=== PATIENT | female | born 1990 | race Caucasian/White ===

== ENCOUNTER 2022-06-07 10:17 | Emergency (ER) | payer OTHER, SELFPAY ==
[2022-06-07] VITALS (12 sets, daily range): BP systolic 157–190; BP diastolic 88–125; PULSE 68–98; RESP 9–20; TEMP 36.7–36.8; O2SAT 97–98
--- NOTE | 2022-06-07 10:30 | DI.CT_ITS ---
Exam(s) CT HEAD WO EXAM: CT HEAD WO CLINICAL HISTORY: headache. TECHNIQUE: Imaging Protocol: Axial computed tomography images with coronal and sagittal reformatted images were created and reviewed COMPARISON: No exams were available for comparison FINDINGS: There are no skull fractures. There is no fluid in the visualized paranasal sinuses. There is no evidence of intracranial hemorrhage, mass effect, or shift of midline structures. There are no extra-axial fluid collections. The ventricles are not enlarged or shifted and there is no blo od within the ventricular system nor within the basal cisterns. IMPRESSION: No acute intracranial findings on this noninfused CT scan of the brain. RADIATION DOSE DELIVERED: 681.39mGy.cm Total DLP DATA REPOSITORY: All CT scans at this facility are submitted to the National Radiology Data Registry (NRDR) Dose Index Registry (DIR) with the [employer] ([employer]). RADIATION OPTIMIZATION: All CT scans at this facility use at least one of these dose optimization te chniques: automated exposure control; mA and/or kV adjustment per patient size (includes targeted exa ms where dose is matched to clinical indication); or iterative reconstruction.
--- NOTE | 2022-06-07 10:30 | RT.EKG_ITS ---
APPROVED REPORT Exam: Resting ECG Reason for Exam: dizziness Patient Location: E HR:73 bpm ECG Measurements Heart Rate 73 AXIS TN 148 P 32 QRSd 97 QRS 25 QT 423 T 2 QTc 468 Conclusion Sinus rhythm...normal P axis, V-rate 60- 99 Probable left ventricular hypertrophy...(RaVL+SV3)xQRSd >300
--- OUTSIDE RECORDS SUMMARY | 2022-06-07 10:33 | XMS_ITS | Continuity of Care Document ---
:1990 Author Organization [facility] Center Address [address] [place] [address] Care Team Providers Name Role Phone Laura Washington Primary Care Physician Encounter [id number] Date(s): 06/06/22 - 06/06/22 [facility] [address] [place] [address] Encounter Diagnosis Hypertension (Discharge Diagnosis) - 06/06/22 Discharge Disposition: Home or Self Care Attending Physician: Miguel A Pickett MD Admitting Physician: Miguel A Pickett MD Allergies, Adverse Reactions, Alerts Substance Reaction Severity Status amoxicillin Skin rash Unknown Active Assessment and Plan Future Appointments Functional Status 06/06/22 Family Member Travel History No recent travel Recent Travel History No recent travel Other exposure to Infectious Disease None Immunizations Given and Recorded Vaccine Date Status Refusal Reason influenza virus vaccine, inactivated1 05/30/22 Recorded measles/mumps/rubella virus vaccine2 02/13/22 Recorded measles/mumps/rubella virus vaccine3 01/10/22 Recorded SARS-CoV-2 (COVID-19) Ad26 vaccine 06/13/21 Recorded tetanus/diphth/pertuss (Tdap) adult/adol 02/15/13 Recorde d Not Given Vaccine Date Status Refusal Reason influenza, unspecified formulation4, 5 04/11/22 Not Given Patient Refuses 1Result Comment: EMPLOYEE [id number] Comment: EMPLOYEE HEALTH VACCINATION3 Result Comment: EMPLOYEE HEALTH [id number] Comment: influenza, injectable, quadrivalent, preservative free Patient Declined Last Modified by Rebekah Hope [place] [employer] 06-14-2020, 14:105Result Comment: influenza, injectable, quadrivalent, preservative free Patient Declined Last Modified by Rebekah Judsonia, [place] [employer] 06-14-2020, 14:10 RECEIVED VACCINE Medications amLODIPine 2.5 mg oral tablet 2.5 mg = 1 tab, Oral, Daily, # 30 tab, 0 Refill(s), Pharmacy: [id number], 162, cm, 06/06/22 13:11:00 EST, Height/Length Dosing, 74.84, kg, 06/06/22 13:11:00 EST, Weight Dosing Start Date: 06/06/22 Status: Orderedbetamethasone dipropionate, augmented 0.05% topical ointment 1 bee to hands, Topical, As Directed, TWICE DAILY FOR 2 WEEKS THEN TAKE A WEEK OFF AND REPEAT NEEDED Start Date: 04/11/22 Status: OrderedChantix Starter Pack 0.5 mg-1 mg oral tablet See Instructions, take kit as instructed, # 1 kits, 0 Refill(s), Pharmacy: [id number] Start Date: 05/08/22 Status: OrderedDupixent Pre-filled Pen 300 mg/2 mL subcutaneous solution 300 mg = 2 mL, Subcutaneous, every 2 wk Start Date: 04/11/22 Status: OrderedFLUoxetine 20 mg oral capsule 20 mg = 1 cap, Oral, Daily, 90 EA, TAKE 1 CAPSULE BY MOUTH ONCE DAILY IN THE MORNING, # 90 cap, 0 Refill(s), Pharmacy: [id number] Start Date: 05/16/22 Status: Orderedhalobetasol 0.01% topical lotion 0 Refill(s) Start Date: 01/08/22 Status: Orderednicotine 21 mg/24 hr transdermal film, extended release 1 patches, TD, Daily, 0 Refill(s) Start Date: 04/11/22 Status: OrderedProtopic 0.1% topical ointment 30 g, APPLY TOPICALLY TO THE AFFECTED AREAS ON THE HANDS TWICE DAILY DURING THE WEEKENDS NEEDED, 0 Refill(s) Start Date: 01/08/22 Status: Ordered Problem List Condition Confirmation Course Effective Dates Status Health I nformant Status Anxiety Confirmed Active Contraception care Confirmed Active management Cyst of ovary Confirmed Active Neck pain Confirmed Active Nicotine dependence Confirmed Active Overweight Confirmed Active Periapical abscess Confirmed Active Pyelonephritis Confirmed Active Refractory migraine Confirmed Active Procedures Procedure Date Related Diagnosis Body Site Status Hysteroscopy with biopsy1 12/18/20 Co mpleted PAP test date2 05/09/14 Completed 1with Mirena IUD [id number]/15/2014- pap nl, Results Laboratory List Name Date Test Urine Qual 06/06/22 Most recent to oldest [Reference Range]: 1 U hCG Ql Negative (06/06/22 1:43 PM) Vital Signs Most recent to oldest 1 2 3 [Reference Range]: Temperature Temporal Artery 36.5 Deg C [36-38 Deg C] (06/06/22 1:05 PM) Peripheral Pulse Rate 94 bpm [60-100 bpm] (06/06/22 1:05 PM) Heart Rate Monitored [60-100 98 bpm 98 bpm bpm] (06/06/22 1:45 PM) (06/06/22 1:19 PM) Respiratory Rate [12-24 16 br/min 10 br/min 18 br/mi n br/min] (06/06/22 1:45 PM) *LOW* (06/06/22 1:0 5 PM) (06/06/22 1:19 PM) Blood Pressure [90-140/60-90 160/95 mmHg 180/111 mmHg 200 /100 mmHg mmHg] *HI* *HI* *HI* (06/06/22 1:45 PM) (06/06/22 1:19 PM) (06/06/22 1:05 PM) Weight Dosing 74.84 kg (06/06/22 1:11 PM) Weight Estimated 74.84 kg (06/06/22 1:05 PM) Height/Length Dosing 162.000 cm (06/06/22 1:11 PM) Height/Length Estimated 162.000 cm (06/06/22 1:05 PM) Social History Social History Type Response Tobacco Former tobacco user Tobacco Use:.1 Sex Female 1quit 30 days ago Hospital Discharge Instructions Patient Awqcxgfrk43/11/2022 13:05:32Hypertension, AdultHypertension, Adult High blood pressure (hypertension) is when the force of blood pumping through the arteries is too strong. The arteries are the blood vessels that carry blood from the heart throughout the body. Hypertension forces the heart to work harder to pump blood and may cause arteries to become narrow or stiff.Untreated or uncontrolled hypertension can cause a heart attack, heart failure, a stroke, kidney disease, and other problems. A blood pressure reading consists of a higher number over a lower number. Ideally, your blood pressure should be below 120/80. The first (top) number is called the systolic pressure. It is a measure of the pressure in your arteries as your heart beats. The second (bottom) number is called the diastolic pressure. It is a measure of the pressure in your arteries as the heart relaxes. What are the causes? The exact cause of this condition is not known. There are some conditions that result in or are related to high blood pressure. What increases the risk? Some risk factors for high blood pressure are under your control. The following factors may make youmore likely to develop this condition: ??? Smoking. ??? Having type 2 diabetes mellitus, high cholesterol, or both. ??? Not getting enough exercise or physical activity. ??? Being overweight. ??? Having too much fat, sugar, calories, or salt (sodium) in your diet. ??? Drinking too much alcohol. Some risk factors for high blood pressure may be difficult or impossible to change. Some of these factors include: ??? Having chronic kidney disease. ??? Having a family history of high blood pressure. ??? Age. Risk increases with age. ??? Race. You may be at higher risk if you are . ??? Gender. Men are at higher risk than women before age 45. After age 65, women are at higher risk than men. ??? Having obstructive sleep apnea. ??? Stress. What are the signs or symptoms? High blood pressure may not cause symptoms. Very high blood pressure (hypertensive crisis) may cause: ??? Headache. ??? Anxiety. ??? Shortness of breath. ??? Nosebleed. ??? Nausea and vomiting. ??? Vision changes. ??? Severe chest pain. ??? Seizures. How is this diagnosed? This condition is diagnosed by measuring your blood pressure while you are seated, with your arm resting on a flat surface, your legs uncrossed, and your feet flat on the floor. The cuff of the blood pressure monitor will be placed directly against the skin of your upper arm at the level of your heart. It should be measured at least twice using the same arm. Certain conditions can cause a difference in blood pressure between your right and left arms. Certain factors can cause blood pressure readings to be lower or higher than normal for a short period of time: ??? When your blood pressure is higher when you are in a health care provider's office than when youare at home, this is called white coat hypertension. Most people with this condition do not need medicines. ??? When your blood pressure is higher at home than when you are in a health care provider's office,this is called masked hypertension. Most people with this condition may need medicines to control blood pressure. If you have a high blood pressure reading during one visit or you have normal blood pressure with other risk factors, you may be asked to: ??? Return on a different day to have your blood pressure checked again. ??? Monitor your blood pressure at home for 1 week or longer. If you are diagnosed with hypertension, you may have other blood or imaging tests to help your health care provider understand your overall risk for other conditions. How is this treated? This condition is treated by making healthy lifestyle changes, such as eating healthy foods, exercising more, and reducing your alcohol intake. Your health care provider may prescribe medicine if lifestyle changes are not enough to get your blood pressure under control, and if: ??? Your systolic blood pressure is above 130. ??? Your diastolic blood pressure is above 80. Your personal target blood pressure may vary depending on your medical conditions, your age, and other factors. Follow these instructions at home: Eating and drinking ??? Eat a diet that is high in fiber and potassium, and low in sodium, added sugar, and fat. An example eating plan is called the DASH (Dietary Approaches to Stop Hypertension) diet. To eat this way: ??? Eat plenty of fresh fruits and vegetables. Try to fill one half of your plate at each meal with fruits and vegetables. ??? Eat whole grains, such as whole-wheat pasta, brown rice, or whole-grain bread. Fill about one fourth of your plate with whole grains. ??? Eat or drink low-fat dairy products, such as skim milk or low-fat yogurt. ??? Avoid fatty cuts of meat, processed or cured meats, and poultry with skin. Fill about one fourthof your plate with lean proteins, such as fish, chicken without skin, beans, eggs, or tofu. ??? Avoid pre-made and processed foods. These tend to be higher in sodium, added sugar, and fat. ??? Reduce your daily sodium intake. Most people with hypertension should eat less than 1,500 mg of sodium a day. ??? Do not drink alcohol if: ??? Your health care provider tells you not to drink. ??? You are , may be , or are planning to become . ??? If you drink alcohol: ??? Limit how much you use to: ??? 0???1 drink a day for women. ??? 0???2 drinks a day for men. ??? Be aware of how much alcohol is in your drink. In the [place] one drink equals one 12 oz bottle ofbeer (355 mL), one 5 oz glass of wine (148 mL), or one 1?? oz glass of hard liquor (44 mL). Lifestyle ??? Work with your health care provider to maintain a healthy body weight or to lose weight. Ask what an ideal weight is for you. ??? Get at least 30 minutes of exercise most days of the week. Activities may include walking, swimming, or biking. ??? Include exercise to strengthen your muscles (resistance exercise), such as Pilates or lifting weights, as part of your weekly exercise routine. Try to do these types of exercises for 30 minutes at least 3 days a week. ??? Do not use any products that contain nicotine or tobacco, such as cigarettes, e-cigarettes, and chewing tobacco. If you need help quitting, ask your health care provider. ??? Monitor your blood pressure at home as told by your health care provider. ??? Keep all follow-up visits as told by your health care provider. This is important. Medicines ??? Take [id number] and prescription medicines only as told by your health care provider. Follow directions carefully. Blood pressure medicines must be taken as prescribed. ??? Do not skip doses of blood pressure medicine. Doing this puts you at risk for problems and can make the medicine less effective. ??? Ask your health care provider about side effects or reactions to medicines that you should watchfor. Contact a health care provider if you: ??? Think you are having a reaction to a medicine you are taking. ??? Have headaches that keep coming back (recurring). ??? Feel dizzy. ??? Have swelling in your ankles. ??? Have trouble with your vision. Get help right away if you: ??? Develop a severe headache or confusion. ??? Have unusual weakness or numbness. ??? Feel faint. ??? Have severe pain in your chest or abdomen. ??? Vomit repeatedly. ??? Have trouble breathing. Summary ??? Hypertension is when the force of blood pumping through your arteries is too strong. If this condition is not controlled, it may put you at risk for serious complications. ??? Your personal target blood pressure may vary depending on your medical conditions, your age, andother factors. For most people, a normal blood pressure is less than 120/80. ??? Hypertension is treated with lifestyle changes, medicines, or a combination of both. Lifestyle changes include losing weight, eating a healthy, low-sodium diet, exercising more, and limiting alcohol. This information is not intended to replace advice given to you by your health care provider. Make sure you discuss any questions you have with your health care provider. Document Revised: 03/23/2019 Document Reviewed: 03/23/2019 [employer] Patient Education ?? 2021 [employer]. Follow Up Care06/06/2022 13:04:57With:Laura Washington NP Address: [place] [address]- When:1 [facility] Physician Emergency department Note Jose Chamorro MD: PERFORM Event Display: ED Note Physician Authored Date: [id number] ERIC MAGALLANES :1990 Age:32 years Sex:Female Visit Date:06/06/2022 Primary Care Physician: Laura Washington NP Basic Information Time Seen: Jose Chamorro MD / 06/06/2022 13:11 Chief Complaint Pt was seen in ED yesterday for N/V.Pt was at work and her BP was taken it was 177/107. Pt feel sick to her stomach when she eats, has not eaten today. History Of Present Illness: 32-year-old female??past medical history obesity, pyelonephritis, nicotine dependence, ovarian cystpresents with high blood pressure measurement. ??Patient was in the ER yesterday??diagnosed with a ovarian cyst sent home, had some intermittent vomiting??that was somewhat persistent but felt well today.?? 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 Patient does not have any symptoms at this time otherwise feels well, no headaches vision changes numbness weakness??neck pain chest pain shortness of breath??or current abdominal pain. Review of Systems: Constitutional:?No??fevers,?No??chills,?No??sweats Eye:?No??recent visual problems ENT:?No??ear pain,?No??nasal congestion,?No??sore throat Respiratory:?No??shortness of breath,?No??cough Cardiovascular:?No??Chest pain,?No??palpitations,?No??syncope Gastrointestinal:?Nonausea,?No??vomiting,?No??diarrhea Genitourinary:?No??hematuria Rian/Lymph:?No??bruising tendency,?No??swollen lymph glands Endocrine:?No??excessive thirst,??No??excessive hunger Musculoskeletal:??No??back pain,??No??neck pain,??No??joint pain,??No??muscle pain,??No??decreased range of motion Integumentary:?No??rash,?No??pruritus,?No??abrasions Neurologic: Alert & oriented X 4 Psychiatric:?No??anxiety,?No??depression Physical Exam Vitals & Measurements T:??36.5?C ??(Temporal Artery)?? HR:??98??(Monitored)?? RR:??16?? BP:??160/95?? SpO2:??95%?? HT:??162.000??cm?? WT:??74.84??kg??(Estimated)?? Pain Score:??2?? O2 Therapy:??Room air?? General: Alert and oriented, well nourished,?No??acute distress Eye: PERRL, EOMI,?Normal??conjunctiva HENT: Normocephalic, clear tympanic membranes,?Normal?? hearing, moist oral mucosa,?No??scleral icterus,?No??sinus tenderness Neck: Supple, non-tender,?No??carotid bruits,?No??JVD,?No??lymphadenopathy Lungs: Clear to auscultation and percussion,?Non-labored?? respiration Heart:?Normal?? rate,?Regular??rhythm,?No??murmur,?No??gallop,?No??edema Abdomen: Soft, non-tender, non-distended,?Normal?? bowel sounds,?No??masses Musculoskeletal:?Normal?? range of motion and strength,?No??tenderness,?No??swelling Skin: Skin is warm, dry and pink,?No??rashes,?No??lesions Neurologic: Awake, alert and oriented X4, CN II-XII intact Psychiatric: Cooperative, appropriate mood and affect Medical Decision Makin-year-old female??presents with high blood pressure measurement.?? 36.5,??200/100 then decreased to 180/111, heart rate 94, 18, 97%. ??Patient was in the ER yesterday evaluated for??some abdominal discomfort and vomiting, had a CT??of the abdomen as well as transvaginal ultrasound, diagnosed with ovarian cyst.?? No history of hypertension. ??At this time she is asymptomatic.?? 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 Clinically she feels well does not have any symptoms at this time.?? Urine test is negative.?? Blood pressure after multiple measurements after patient was resting in the ER still elevated in the 160s systolic.?? Given the elevated blood pressure measurement yesterday as well, will start on low-dose amlodipine 2.5 mg once daily, follow-up with primary care within the next??1 to 2 weeks??for reevaluation. ??Discharged stable condition with return precautions the ED. Procedure No Qualifying Data Assessment/Plan 1.??Hypertension??I10 Ordered: amLODIPine 2.5 mg oral tablet, 2.5 mg = 1 tab, Oral, Daily, # 30 tab, 0 Refill(s), Pharmacy: [id number], 162, cm, 06/06/22 13:11:00 EST, Height/Length Dosing, 74.84, kg, 06/06/22 13:11:00 EST, Weight Dosing Discharge Patient, 06/06/22 13:57:00 EST, Home Independently, Constant Indicator ?? Patient Education Hypertension, Adult Follow Up With When Contact Information Laura Washington [employer] Within [address] [place] [address]- Additional Instructions: Medication Reconciliation New Prescription amLODIPine (amLODIPine 2.5 mg oral tablet)1 tab Oral (given by mouth) every day. Refills: 0. ?? Unchanged betamethasone topical (betamethasone dipropionate, augmented 0.05% topical ointment)1 bee to hands Topical (on the skin) As Directed. TWICE DAILY FOR 2 WEEKS THEN TAKE A WEEK OFF AND REPEAT NEEDED. ?? dupilumab (Dupixent Pre-filled Pen 300 mg/2 mL subcutaneous solution)2 Milliliters Subcutaneous (under the skin) every other week. ?? FLUoxetine (FLUoxetine 20 mg oral capsule)1 Capsules Oral (given by mouth) every day. 90 EA, TAKE 1 CAPSULE BY MOUTH ONCE DAILY IN THE MORNING. Refills: 0. ?? halobetasol topical (halobetasol 0.01% topical lotion) ?? nicotine (nicotine 21 mg/24 hr transdermal film, extended release)1 patch(es) Transdermal (apply on the skin) every day. ?? tacrolimus topical (Protopic 0.1% topical ointment)30 g, APPLY TOPICALLY TO THE AFFECTED AREAS ON THE HANDS TWICE DAILY DURING THE WEEKENDS NEEDED. ?? varenicline (Chantix Starter Pack 0.5 mg-1 mg oral tablet)take kit as instructed. Refills: 0. Problem List/Past Medical History Ongoing Anxiety Contraception care management Cyst of ovary Neck pain Nicotine dependence Overweight Periapical abscess Pyelonephritis Refractory migraine Historical Influenza Procedure/Surgical History ???Hysteroscopy with biopsy (12/19/2020)???PAP test date (05/10/2014) Allergies amoxicillin??(Skin rash) Social History Alcohol Never Electronic Cigarette/Vaping Electronic Cigarette Use: Never. Sexual Other contraceptive use: IUD. Substance Use Never Tobacco Former tobacco user Tobacco Use:.- Comments: quit 30 days ago Family History Hypertension: Father. Lab Results Testing?? LATEST RESULTS?? U hCG Ql?? 06/06/22 13:43?? Negative? Electronically Signed on 06/06/22 02:05 PM Jose Chamorro MD Emergency department Discharge instructions Jose Chamorro MD: PERFORM Event Display: ED Discharge Information Authored Date: [id number] ERIC MAGALLANES :1990 Age:32 years Sex:Female Visit Date:06/06/2022 Primary Care Physician: Laura Washington [employer] Discharge Instructions We would like to thank you for allowing us to assist you with your healthcare needs. The following includes patient education materials and information regarding your injury/illness. Diagnosis from Today's Visit Hypertension Discharge Vitals Temperature??(Temporal Artery) 97.7 ??F (36.5 ??C) Heart Rate??(Monitored) 98 Respiratory Rate?? 16 Blood Pressure?? 160/95?? Height?? 63.78 in (162.000 cm) Weight??(Estimated) 165.02 lb (74.84 kg) Allergies amoxicillin??(Skin rash) What to Do Next You Need to Schedule the Following Appointments Follow Up with??Laura Washington NP When:??Within 1 month Where: [place] [id number]- Upcoming Scheduled Appointments Thursday 2:40 PM EST ?? You were treated today on an emergency basis; it may be rinaldi to contact your primary care provider to notify them of your visit today. You may have been referred to your regular doctor or a specialist,please follow up as instructed. If your condition worsens or you can't get in to see the doctor, contact the Emergency Department. Medications What How Much When Why Instructions Next Dose New amLODIPine (amLODIPine 2.5 mg oral tablet) 1 tab Oral (given by mouth) Every day Hypertension Pickup at [facility] Unchanged betamethasone topical (betamethasone dipropionate, augmented 0.05% topical ointment) 1 bee to hands Topical (on the skin) As Directed TWICE DAILY FOR 2 WEEKS THEN TAKE A WEEK OFF AND REPEAT NEEDED ?? Unchanged dupilumab (Dupixent Pre-filled Pen 300 mg/ 2 mL subcutaneous solution) 2 Milliliters Subcutaneous (under the skin) Every other week Unchanged FLUoxetine (FLUoxetine 20 mg oral capsule) 1 Capsules Oral (given by mouth) Every day Anxiety 90 EA, TAKE 1 CAPSULE BY MOUTH ONCE DAILY IN THE MORNING ?? Unchanged halobetasol topical (halobetasol 0.01% topical lotion) Unchanged nicotine (nicotine 21 mg/ 24 hr transdermal film, extended release) 1 patch(es) Transdermal (apply on the skin) Every day Unchanged tacrolimus topical (Protopic 0.1% topical ointment) 30 g, APPLY TOPICALLY TO THE AFFECTED AREAS ON THE HANDS TWICE DAILY DURING THE WEEKENDS NEEDED ?? Unchanged varenicline (Chantix Starter Pack 0.5 mg-1 mg oral tablet) See instructions Nicotine dependence Currently attempting to quit smoking take kit as instructed ?? Pharmacy Information [id number]: [address] [place] [address] [phone] Education Materials Hypertension, Adult High blood pressure (hypertension) is when the force of blood pumping through the arteries is too strong. The arteries are the blood vessels that carry blood from the heart throughout the body. Hypertension forces the heart to work harder to pump blood and may cause arteries to become narrow or stiff. Untreated or uncontrolled hypertension can cause a heart attack, heart failure, a stroke, kidney disease, and other problems. A blood pressure reading consists of a higher number over a lower number. Ideally, your blood pressure should be below 120/80. The first (top) number is called the systolic pressure. It is a measureof the pressure in your arteries as your heart beats. The second (bottom) number is called the diastolic pressure. It is a measure of the pressure in your arteries as the heart relaxes. What are the causes? The exact cause of this condition is not known. There are some conditions that result in or are related to high blood pressure. What increases the risk? Some risk factors for high blood pressure are under your control. The following factors may make you more likely to develop this condition: ? Smoking. ? Having type 2 diabetes mellitus, high cholesterol, or both. ? Not getting enough exercise or physical activity. ? Being overweight. ? Having too much fat, sugar, calories, or salt (sodium) in your diet. ? Drinking too much alcohol. Some risk factors for high blood pressure may be difficult or impossible to change. Some of these factors include: ? Having chronic kidney disease. ? Having a family history of high blood pressure. ? Age. Risk increases with age. ? Race. You may be at higher risk if you are . ? Gender. Men are at higher risk than women before age 45. After age 65, women are at higher risk thanmen. ? Having obstructive sleep apnea. ? Stress. What are the signs or symptoms? High blood pressure may not cause symptoms. Very high blood pressure (hypertensive crisis) may cause: ? Headache. ? Anxiety. ? Shortness of breath. ? Nosebleed. ? Nausea and vomiting. ? Vision changes. ? Severe chest pain. ? Seizures. How is this diagnosed? This condition is diagnosed by measuring your blood pressure while you are seated, with your arm resting on a flat surface, your legs uncrossed, and your feet flat on the floor. The cuff of the blood pressure monitor will be placed directly against the skin of your upper arm at the level of your heart. It should be measured at least twice using the same arm. Certain conditions can cause a differencein blood pressure between your right and left arms. Certain factors can cause blood pressure readings to be lower or higher than normal for a short period of time: ? When your blood pressure is higher when you are in a health care provider's office than when you areat home, this is called white coat hypertension. Most people with this condition do not need medicines. ? When your blood pressure is higher at home than when you are in a health care provider's office, this is called masked hypertension. Most people with this condition may need medicines to control blood pressure. If you have a high blood pressure reading during one visit or you have normal blood pressure with other risk factors, you may be asked to: ? Return on a different day to have your blood pressure checked again. ? Monitor your blood pressure at home for 1 week or longer. If you are diagnosed with hypertension, you may have other blood or imaging tests to help your health care provider understand your overall risk for other conditions. How is this treated? This condition is treated by making healthy lifestyle changes, such as eating healthy foods, exercising more, and reducing your alcohol intake. Your health care provider may prescribe medicine if lifestyle changes are not enough to get your blood pressure under control, and if: ? Your systolic blood pressure is above 130. ? Your diastolic blood pressure is above 80. Your personal target blood pressure may vary depending on your medical conditions, your age, and other factors. Follow these instructions at home: Eating and drinking ? Eat a diet that is high in fiber and potassium, and low in sodium, added sugar, and fat. An example eating plan is called the DASH (Dietary Approaches to Stop Hypertension) diet. To eat this way: ? Eat plenty of fresh fruits and vegetables. Try to fill one half of your plate at each meal with fruits and vegetables. ? Eat whole grains, such as whole-wheat pasta, brown rice, or whole-grain bread. Fill about one fourthof your plate with whole grains. ? Eat or drink low-fat dairy products, such as skim milk or low-fat yogurt. ? Avoid fatty cuts of meat, processed or cured meats, and poultry with skin. Fill about one fourth of your plate with lean proteins, such as fish, chicken without skin, beans, eggs, or tofu. ? Avoid pre-made and processed foods. These tend to be higher in sodium, added sugar, and fat. ? Reduce your daily sodium intake. Most people with hypertension should eat less than 1,500 mg of sodium a day. ? Do not drink alcohol if: ? Your health care provider tells you not to drink. ? You are , may be , or are planning to become . ? If you drink alcohol: ? Limit how much you use to: ? 0???1 drink a day for women. ? 0???2 drinks a day for men. ? Be aware of how much alcohol is in your drink. In the [place] one drink equals one 12 oz bottle of beer (355 mL), one 5 oz glass of wine (148 mL), or one 1?? oz glass of hard liquor (44 mL). Lifestyle ? Work with your health care provider to maintain a healthy body weight or to lose weight. Ask what anideal weight is for you. ? Get at least 30 minutes of exercise most days of the week. Activities may include walking, swimming,or biking. ? Include exercise to strengthen your muscles (resistance exercise), such as Pilates or lifting weights, as part of your weekly exercise routine. Try to do these types of exercises for 30 minutes at least 3 days a week. ? Do not use any products that contain nicotine or tobacco, such as cigarettes, e- cigarettes, and chewing tobacco. If you need help quitting, ask your health care provider. ? Monitor your blood pressure at home as told by your health care provider. ? Keep all follow-up visits as told by your health care provider. This is important. Medicines ? Take zehv-oud-tripgal and prescription medicines only as told by your health care provider. Follow directions carefully. Blood pressure medicines must be taken as prescribed. ? Do not skip doses of blood pressure medicine. Doing this puts you at risk for problems and can make the medicine less effective. ? Ask your health care provider about side effects or reactions to medicines that you should watch for. Contact a health care provider if you: ? Think you are having a reaction to a medicine you are taking. ? Have headaches that keep coming back (recurring). ? Feel dizzy. ? Have swelling in your ankles. ? Have trouble with your vision. Get help right away if you: ? Develop a severe headache or confusion. ? Have unusual weakness or numbness. ? Feel faint. ? Have severe pain in your chest or abdomen. ? Vomit repeatedly. ? Have trouble breathing. Summary ? Hypertension is when the force of blood pumping through your arteries is too strong. If this condition is not controlled, it may put you at risk for serious complications. ? Your personal target blood pressure may vary depending on your medical conditions, your age, and other factors. For most people, a normal blood pressure is less than 120/80. ? Hypertension is treated with lifestyle changes, medicines, or a combination of both. Lifestyle changes include losing weight, eating a healthy, low-sodium diet, exercising more, and limiting alcohol. This information is not intended to replace advice given to you by your health care provider. Make sure you discuss any questions you have with your health care provider. Document Revised: 03/23/2019 Document Reviewed: 03/23/2019 [employer] Patient Education ?? 2021 [employer] Tests Performed Lab Test Name Test Result Date/Time U hCG Ql NEGATIVE 06/06/2022 13:43 EST Patient/Manager Continuous Improvement Signature Patient Name:NAAWindyERIC I have received this information and my questions have been answered. Patient/Manager Continuous Improvement Name: Patient/Manager Continuous Improvement Signature: Relationship to Patient: Witness Name/Signature: Date: Electronically Signed on: 06/06/2022 14:05 ESTSigned by:[facility] Emergency department Note Darlene Brady: PERFORM Event Display: ED Notes Authored Date: Patient Care team information Care Team PersonnelName: Laura Washington NP Position: Physician Member Role: Primary Care Physician Address: Address: [address] Name: Berna Don MD Position: Physician - Women's Health Member Role: ACCESS COORDINATOR Physician Address: Address: [address] Name: Padma Serrano Position: Nurse Member Role: ED Nurse Name: Jose Chamorro MD Position: Physician Member Role: ED Physician Address: Address: [facility] [address] [place] [address]- Care Team Related PersonsName: KOLBY MAGALLANES Name: SUSI GROSSMAN
--- OUTSIDE RECORDS SUMMARY | 2022-06-07 10:33 | XMS_ITS | Encounter Summary ---
:1990 Author Organization [facility] [place] [address] Care Team Providers Name Role Phone Deepti Mathis KALEN Primary Care Provider Reason for Visit Reason Onset Date Comments Prior Authorization 08/14/2021 Tacrolimus Encounter Details Date Type Department Care Team Description 08/14/2021 Telephone Dermatology at Mimi Webber CMA Pr ior Authorization Road (Tacrolimus) [address] [place] [address] Social History Tobacco Use Types Packs/Day Years Used Date Current Every Day Smoker Smokeless Tobacco: Never Used Sex Assigned at Date Recorded Not on file documented as of this encounter Miscellaneous Notes Telephone Encounter - Suzanne Wright CMA - 09/12/2021 10:43 AM EST Medication Prior Authorization Approval Approved: Tacrolimus Start Date: 09/10/2021 End Date: 09/10/2022 Case/Reference #: [id number] See Approval Letter in scanned documents. Telephone Encounter - Suzanne Wright CMA - 08/29/2021 7:32 AM EST I resubmitted PA to insurance with tried and failed medications Triamcinolone and Diprolene-AF. Carver # [id number] Telephone Encounter - Suzanne Wright CMA - 08/27/2021 1:04 PM EST [place] medicaid sent letter stating the following: For approval: the patient has had a documented side effect, allergy, or treatment failure with at least one moderate to high potency topical corticosteroid within the last 6 months. I will route this information to provider. Telephone Encounter - Suzanne Wright CMA - 08/27/2021 12:37 PM EST I called [place] medicaid and spoke with Michele. Michele let me know that they deferred the PA back to us because they need more information. Michele is re-faxing the letter over to our department with the additional information they need from us. Telephone Encounter - Mimi Wu CMA - 08/14/2021 12:47 PM EST Medication Prior Authorization Request received via: [facility] Patient: Juana Krishna Patient : 1990 Insurance Company: [place] Sent via: [facility] Carver: [id number] Physician: Nemesio Marr MD Medication Requested: tacrolimus (Protopic) 0.1 % Ointment Frequency/Sig: Apply topically to affected areas on the hands during the weekends twice daily as needed Disp: 100g Refills: 3 Currently taking: no Diagnosis for this medication: Dermatitis L30.9 Additional Notes: documented in this encounter Plan of Treatment Not on filedocumented as of this encounter Visit Diagnoses Not on filedocumented in this encounter Care Teams Bracelet Maker Novelty Relationship Specialty Start Date End Date Deepti Mathis APRN PCP - General Family Medicine 02/23/[address] [place] [address] [place] [phone] documented as of this encounter
--- OUTSIDE RECORDS SUMMARY | 2022-06-07 10:33 | XMS_ITS | Clinical Summary ---
:1990 Demographics Home Phone Preferred Language Unknown Marital Status Unknown Muslim Affiliation Unknown Race Unknown Ethnic Group Unknown Author Organization [facility] Address [address] [place] [address] Care Team Providers Name Role Phone Unavailable Primary Care Provider Unavailable Social History Tobacco Use Types Packs/Day Years Used Date Smoking Tobacco: Never Assessed Sex Assigned at Date Recorded Not on file Plan of Treatment Upcoming Encounters Date Type Specialty Care Team Description 08/11/2022 Office Visit Obstetrics & Gynecology Caroline Garces MD [address] [facility], [facility], [facility] [address] [place], [place] [address] (Wo rk) Health Maintenance Due Date Last Done Comments Hepatitis C Screen 1990 COVID-19 Vaccine (#1) 1990
--- OUTSIDE RECORDS SUMMARY | 2022-06-07 10:33 | XMS_ITS | Encounter Summary ---
:1990 Author Organization [place] [address] Care Team Providers Name Role Phone Deepti Matihs APRN Primary Care Provider Encounter Details Date Type Department Care Team Description 01/09/2022 Telephone Dermatology at Nemesio Novak MD [address] [place] [address] [facility] [phone] [place], [place] [address] (Wo rk) Social History Tobacco Use Types Packs/Day Years Used Date Current Every Day Smoker Smokeless Tobacco: Never Used Sex Assigned at Date Recorded Not on file documented as of this encounter Miscellaneous Notes Telephone Encounter - Marixa Campbell LPN - 01/09/2022 2:50 PM EDT Spoke with Juana today and she decided she would come here for allergy testing because [facility] was vimal further for her and she is familiar with our setting. Advised I would let Dr. Marr know and have his crm dynamics developer reach out to her to schedule documented in this encounter Plan of Treatment Not on filedocumented as of this encounter Visit Diagnoses Not on filedocumented in this encounter Care Teams Special Projects Manager Relationship Specialty Start Date End Date Deepti Mathis APRN PCP - General Family Medicine 02/23/[address] [place] [address] [place] [phone] documented as of this encounter
--- OUTSIDE RECORDS SUMMARY | 2022-06-07 10:33 | XMS_ITS | Encounter Summary ---
:1990 Author Organization [facility] [place] [address] Care Team Providers Name Role Phone Deepti Mathis KALEN Primary Care Provider Reason for Visit Consultation (Routine) - Closed Specialty Diagnoses / Procedures Referred By Contact Refer red To Contact Dermatology Diagnoses CHRONIC HAND DERMATITIS NOW W/ CELLULITIS Jalil Rosales MD [facility] Dermatology [address] [place] [address] [place] [address] Fax: Referral ID Status Reason Start Date Expiration Date Visits V isits Requested Authorized [id number] Closed Consult, Test 02/23/2021 02/23/2022 [facility] PCP Updated and/or Approved Encounter Details Date Type Department Care Team Description 04/17/2021 Office Visit Dermatology at [facility] Ace Landrum MD Dermatitis [address] [facility] [place] [address] [facility] [address]-DERMATOLOGY [phone] [place], [place] [address] (Wo rk) Social History Tobacco Use Types Packs/Day Years Used Date Never Assessed Sex Assigned at Date Recorded Not on file documented as of this encounter Patient Instructions Patient India Mccarty - 04/17/2021 4:00 PM EDT Tips for prevention of Hand Dermatitis/Eczema with Good ???Hand Hygiene?? Avoiding irritant exposures (such as wet work, chronic dry skin and caustic/non- plain personal care products) is essential to healing/preventing all forms of hand dermatitis. Recommendations: ?? Try to limit hand washing as much as possible and use soap (recommended product only) sparingly. Waterless hand soaps (Avagarud, Purell) are actually best if tolerated. ?? Apply a thick, bland moisturizer (recommended product only) after EVERY hand washing, after removing gloves and multiple other times throughout the day. IF HANDS FEEL DRY THEY NEED MORE MOISTURIZER (no matter how many times you have used it that day)! ?? Wear ???double gloves?? (Cotton glove liner under a waterproof outer glove) whenever possible for wet/dirty work/activities so that you may remove your gloves after in lieu of washing your hands. If possible avoid these activities all together. ?? At work, try to wear vinyl gloves w/ a cotton glove liner if you are able to instead of latex/powdered/nitrile gloves. ?? At home, wear plastic/rubber household gloves w/ a cotton glove liner when doing any and all cleaning/dish washing/food prep activities. ?? At night, wear cotton gloves overnight w/ a recommended moisturizer or prescription topical steroid as recommended by your doctor. ?? Do not handle wipes of any kind (baby wipes, moist towelettes, moist tissues etc.) without glovesas above. ?? Do not wear hand jewelry at work. Moisture and other products can persist under it and worsen dermatitis ?? Do not pick at loose ends of skin. Avoid excess mechanical irritation such as high friction activities with hands. Recommended Products: ?? Vaseline (100% Pure Petroleum Jelly) ?? Aquafor ?? Vanicream Products: Cream Moisturizer, Bar Soap, Pump Soap ?? CeraVe Products: Cream Moisturizer, Moisturizing Facial Soap ?? Free & Clear Products: Shampoo & Conditioner Recommend Gloves for HealthCare workers with concern for rubber allergies: Nan GAMMEX Non-Latex Sensitive sterile gloves for Operative procedures requiring sterile gloves Nan Micro-Touch Nitrile Accelerator-free gloves for in office use documented in this encounter Progress Notes Ace Landrum MD - 04/17/2021 4:00 PM EDT Images from the original note were not included. DEPARTMENT OF DERMATOLOGY Medical D[facility]at[facility] Provider: Ace Landrum MD Patient's preferred name Juana Preferred contact method for results [x]Phone: Cell []myD-H []Letter Detailed phone message OK? Yes Are there any other people with whom we may discuss your care? No Past Medical History Date, location, treatment Melanoma N Dysplastic nevi N SCC N BCC N AKs N Other relevant past medical history N Family History Details Melanoma N NMSC N Other relevant family history Son-psoriasis Social History Mannie Bond History of Present Illness: Juana Krishna is a 30 y.o. Patient is new and self-referred to the clinic for rash on bilateral hands. She notes that she has been dealing with it for 6-9 months, when it starts to break out it is extremely itchy, it blisters and gets scaly, then it gets raw and hurts,her doctor gave her an antifungal cream which helps, but the rash but it comes right back when she'snot using it, she is not currently doing anything to treat and denies putting anything else on her hands. -Uses Dial soap Medications: Reviewed in eD-H Allergies: Reviewed in eD-H Skin Examination: Focused skin examination of the hands was normal with the exception of the findings below. Assessment/Plan #. Hand dermatitis - red scaly chapped thin plaques with hyper-linearity and scattered fissures on BL hands right worse than left with some nail pitting. BETSY skin scraping was negative for fungal elements. - Reviewed hand hygiene and sensitive skin care. AVS on hand hygiene provided - Discussed that majority of hand dermatitis is irritant and due from frequent handwashing, wet work, mechanical trauma etc... - Cases of long standing hand eczema need to consider allergic contact dermatitis: Plan: - hand hygiene with barrier protection with bland emollient such as Vaseline or Aquafor - Cerave cream or Neutragena Venezuelan Formula Hand Cream during day after hand washing -Start Rx:Triamcinolone 0.1% ointment (80 g tube with refill) Apply to affected areas BID x 2 weeks,then daily x 1 week. If skin clear ok to stop early. Reviewed side effects of chronic steroid use. -repeat with flaring -Return to clinic if after 3 cycles of treatment you do not notice. Other: ??? N/A RTC: 6-8 weeks for hand derm []Note routed to secretary administrative assistant []Recall placed in scheduling system [x]Appointment scheduled at checkout Scribe attestation: India Winter and Casey Michaud have performed the documentation for this encounter in the presence of and acting as a scribe for Ace Landrum MD. I performed the above scribed service and agree with the accuracy of the documentation in this encounter. Reviewed and signed by: Ace Landrum MD Dermatology [facility] documented in this encounter Plan of Treatment Not on filedocumented as of this encounter Visit Diagnoses Diagnosis Dermatitis Contact dermatitis and other eczema, due to unspecified cause documented in this encounter Care Teams Senior Manufacturing Test Engineer Relationship Specialty Start Date End Date Deepti Mathis, PURE CULTURE OPERATOR PCP - General Family Medicine 02/23/[address] [place] [address] [place] [address] documented as of this encounter
--- OUTSIDE RECORDS SUMMARY | 2022-06-07 10:33 | XMS_ITS | Encounter Summary ---
:1990 Author Organization [facility] [place] [address] Care Team Providers Name Role Phone Deepti Mathis APRN Primary Care Provider Reason for Visit Reason Comments Specialty Pharmacy Review Encounter Details Date Type Department Care Team Description 10/17/2021 Specialty Pharmacy Pharmacy at [facility] [place] [phone] Social History Tobacco Use Types Packs/Day Years Used Date Current Every Day Smoker Smokeless Tobacco: Never Used Sex Assigned at Date Recorded Not on file documented as of this encounter Progress Notes Agus Maxwell - 10/17/2021 11:59 PM EDT The [facility] has completed a benefits investigation for Juana Krishna to review their eligibility to fill at [facility]. Per patient's medication list they are prescribedDUPIXENT 300 MG/2 ML and the medication is currently filled at the [facility]. documented in this encounter Plan of Treatment Not on filedocumented as of this encounter Visit Diagnoses Not on filedocumented in this encounter Care Teams Control Panel Operator Crude Unit Relationship Specialty Start Date End Date Deepti Mathis APRN PCP - General Family Medicine 02/23/[address] [place] [address] [place] [phone] documented as of this encounter
--- OUTSIDE RECORDS SUMMARY | 2022-06-07 10:33 | XMS_ITS | Encounter Summary ---
:1990 Author Organization [facility] [place] [address] Care Team Providers Name Role Phone Maggie Mathisomi Kassie HIGUERA Primary Care Provider Reason for Visit Reason Comments Prior Authorization Dupixent 300mg/2ml pen Encounter Details Date Type Department Care Team Description 09/11/2021 Specialty Pharmacy Pharmacy at [facility] Shiva, Prior Authorization [facility] Ruthie Russo (Dupixent 300mg/2ml Drive [place]) [place] [phone] Social History Tobacco Use Types Packs/Day Years Used Date Current Every Day Smoker Smokeless Tobacco: Never Used Sex Assigned at Date Recorded Not on file documented as of this encounter Progress Notes Ruthie Shannon - 09/11/2021 1:25 PM EST [facility], Medication Prior Authorization Submission Patient: Juana Krishna Patient : 1990 Patient Address: [address] [facility] [address] (home) Medication Name: DUPILUMAB 300 MG/2 ML SUBCUTANEOUS PEN INJECTOR Medication ID: [id number] Subscriber Insurance: [place] Medicaid Subscriber Insurance Comment: Phone: Fax: Physician: CORRIE SETHI Physician Comment: Sent Via: Fax Carver: Ref/Case/PA#: Medication Strength Frequency Requested: dupixent 300mg/2ml 600mg once, 300mg every 14 days Qty/Day Supply: 11/07 New Start: New to Therapy Diagnosis & ICD-10 Code: L30.9 Patient Notified: No Submission Notes: None Ruthie Shannon 09/11/21 1:50 PM Malick Diaz - 09/11/2021 1:25 PM EST [facility], Prior Authorization Denial Medication Name: DUPILUMAB 300 MG/2 ML SUBCUTANEOUS PEN INJECTOR Medication ID: [id number] Case/Reference # : [id number] Denial Summary: Did not provide all the information requested to have the PA approved. Will resubmitonce we information is available. Patient Notified of Denial: No Additional Information from insurance carrier. Please see below: None For any questions relating to this denial please reach out directly to your section's specialty pharmacist, or the specialty pharmacy team at [facility] Malick Manzo 09/25/21 8:40 AM Gabrielle Herrera RP - 09/11/2021 1:25 PM EST [facility], Prior Authorization Appeal Submission Medication Name: DUPILUMAB 300 MG/2 ML SUBCUTANEOUS PEN INJECTOR Medication ID: Denied by Insurance on: 09/25/2021 Appeal Submission Date: 09/30/2021 Sent Via: Fax Appeals Department Contact Information: Faxed to [place] PA review team Additional information regarding this appeal: None For any questions relating to this appeal please reach out directly to your section's specialty pharmacist. Gabrielle Butcher RPH 09/30/21 9:57 AM documented in this encounter Plan of Treatment Not on filedocumented as of this encounter Visit Diagnoses Not on filedocumented in this encounter Care Teams Printing Machine Operator Relationship Specialty Start Date End Date Deepti Mathis APRN PCP - General Family Medicine 02/23/[address] [place] [address] [place] [phone] documented as of this encounter
--- OUTSIDE RECORDS SUMMARY | 2022-06-07 10:33 | XMS_ITS | Encounter Summary ---
:1990 Author Organization [facility] [place] [address] Care Team Providers Name Role Phone Deepti Mathis APRN Primary Care Provider Reason for Visit Reason Comments Prior Authorization Dupixent 300mg/2ml sopn Encounter Details Date Type Department Care Team Description 12/30/2021 Specialty Pharmacy Pharmacy at [facility] RiberaArabella lovingfany Prior Authorization [facility] (Dupixent 300mg/2ml Drive sopn) [place] [address] Social History Tobacco Use Types Packs/Day Years Used Date Current Every Day Smoker Smokeless Tobacco: Never Used Sex Assigned at Date Recorded Not on file documented as of this encounter Progress Notes Vaishali Ribera M - 12/30/2021 1:37 PM EDT [facility], Prior Authorization Approval Medication Name: DUPIXENT 300 MG/2 ML SUBCUTANEOUS PEN INJECTOR Medication ID: [id number] Approval Dates: 12/30/2021 to 12/30/2022 Insurance requirements/notes: DHRX#[id number] Must fill through [facility]. Other Notes: None Case/Reference #: [id number] Approval notification Received via: [facility] Copay: unknown Copay assistance: Other (Enter Comment) Copay Notes: Unable to obtain copay information as patient must fill through [facility]. Insurance mandated Pharmacy: [facility] Fillable at [facility]: One time Fill Pharmacy staff will be reaching out to the patient to inform them of their medication's approval by their insurance. If applicable, a pharmacist will speak with the patient to offer our specialty pharmacy services and to arrange delivery of their medication. Vaishali Ribera 12/30/21 1:43 PM [facility], Medication Prior Authorization Submission Patient: Juana Krishna Patient : 1990 Patient Address: [address] [address] (home) Medication Name: DUPIXENT 300 MG/2 ML SUBCUTANEOUS PEN INJECTOR Medication ID: [id number] [facility] Subscriber Insurance Comment: Phone: Fax: Physician: CORRIE SETHI Physician Comment: Sent Via: [facility] Carver: [id number] Ref/Case/PA#: Medication Strength Frequency Requested: INJECT THE CONTENTS OF ONE PEN (300MG) SUBCUTANEOUSLY EVERY14 DAYS Qty/Day Supply: 11/21 New Start: Insurance Change Diagnosis & ICD-10 Code: Dermatitis L30.9 Patient Notified: No Submission Notes: None Vaishali Ribera 12/30/21 1:43 PM documented in this encounter Plan of Treatment Not on filedocumented as of this encounter Visit Diagnoses Not on filedocumented in this encounter Care Teams Medical Claims Analyst Relationship Specialty Start Date End Date Deepti Mathis, WAREHOUSE SUPERVISOR 3RD SHIFT PCP - General Family Medicine 02/23/[address] [place] [address] [place] [address] documented as of this encounter
--- OUTSIDE RECORDS SUMMARY | 2022-06-07 10:33 | XMS_ITS | Encounter Summary ---
:1990 Author Organization [facility] [place] [address] Care Team Providers Name Role Phone Deepti Mathis APRN Primary Care Provider Encounter Details Date Type Department Care Team Description 12/30/2021 Refill Dermatology at [facility] Nemesio Marr MD [address] [facility] [place] [address] [facility] [phone] [place], [place] [address] (Wo rk) Social History Tobacco Use Types Packs/Day Years Used Date Current Every Day Smoker Smokeless Tobacco: Never Used Sex Assigned at Date Recorded Not on file documented as of this encounter Plan of Treatment Not on filedocumented as of this encounter Visit Diagnoses Not on filedocumented in this encounter Care Teams Executive Kitchen Manager Relationship Specialty Start Date End Date Deepti Mathis APRN PCP - General Family Medicine 02/23/[address] [place] [address] [place] [phone] documented as of this encounter
--- OUTSIDE RECORDS SUMMARY | 2022-06-07 10:33 | XMS_ITS | Encounter Summary ---
:1990 Author Organization [facility] [place] [address] Care Team Providers Name Role Phone Deepti Mathis KALEN Primary Care Provider Reason for Visit Reason Comments Specialty Refill Management Encounter Details Date Type Department Care Team Description 10/24/2021 Specialty Pharmacy [address]acy at [facility] Elizabeth [place] [phone] Social History Tobacco Use Types Packs/Day Years Used Date Current Every Day Smoker Smokeless Tobacco: Never Used Sex Assigned at Date Recorded Not on file documented as of this encounter Progress Notes Elizabeth Ziegler [facility] - 10/24/2021 12:10 PM EDT Clinical Management Plan: Refill Specialty Pharmacy Consultation; Elizabeth Ziegler [facility] Comprehensive Medication Management (CMM) Juana Krishna is a 31 y.o. (1990) female who was contacted in regard to a specialty medication refill reminder. Contact made with patient regarding Dupixent. A review of the medication therapy was performed. The medication was refilled as scheduled, and all medication related questions and concerns were addressed. The specialty pharmacy staff will follow up with the patient 5-7 days prior to next refill. Was a change made to the Care Plan: No Allergies and Drug intolerance: Allergies Allergen Reactions ??? Amoxicillin ??? Penicillins Medication Reconciliation Discrepancies (compared to [facility] med list) No Specialty Pharmacy Refill Questionnaire Refill Questionnaire 10/24/2021 What is the name of the specialty medication you are refilling? Dupixent Are you taking any new medications? No Any new medical condition? No Any new allergies? No Any new side effects that are bothersome? No What date will you need this fill by? 10/31/2021 Adherence: Any missed doses? No Patient understands no changes to current drug regimen were made. Elizabeth Ziegler RPH 10/24/21 12:12 PM documented in this encounter Plan of Treatment Not on filedocumented as of this encounter Visit Diagnoses Not on filedocumented in this encounter Care Teams Design Engineering Manager Relationship Specialty Start Date End Date Deepti Mathis, KALEN PCP - General Family Medicine 02/23/[address] [place] [address] ANA Scales [phone] documented as of this encounter
--- OUTSIDE RECORDS SUMMARY | 2022-06-07 10:33 | XMS_ITS | Encounter Summary ---
:1990 Author Organization [place] [address] Care Team Providers Name Role Phone Deepti Mathis KALEN Primary Care Provider Reason for Visit Reason Comments Medication Refill Encounter Details Date Type Department Care Team Description 08/03/2021 Refill Dermatology at [facility] Chela Henriquez MD Dermatitis [address] [facility] [place] [address] [facility] [phone] [place], [place] [address] (Wo rk) Social History Tobacco Use Types Packs/Day Years Used Date Never Assessed Sex Assigned at Date Recorded Not on file documented as of this encounter Miscellaneous Notes Telephone Encounter - Laura Newton CCMA - 08/06/2021 9:07 AM EST Medication(s) requested to refill augmented betamethasone 0.05% ointment Last visit: 04/17/21 F/U Scheduled: 08/12/21 Assessment/Plan for this/these medications: dermatitis, apply to hands twice daily for two weeks then stop for one week and repeat as needed. Appropriate to refill: yes Special Considerations: no Order/orders pended and routed to Ml Landrum MD for review and approval documented in this encounter Plan of Treatment Not on filedocumented as of this encounter Visit Diagnoses Diagnosis Dermatitis Contact dermatitis and other eczema, due to unspecified cause documented in this encounter Care Teams Middle School Math Teacher Relationship Specialty Start Date End Date Deepti Mathis, ACID REGENERATOR PCP - General Family Medicine 02/23/[address] [place] [address] [place] [phone] documented as of this encounter
--- OUTSIDE RECORDS SUMMARY | 2022-06-07 10:33 | XMS_ITS | Continuity of Care Document ---
:1990 Author Organization [facility] Address [address] [place] [address] Care Team Providers Name Role Phone Padmini, Laura Zepeda Primary Care Physician Encounter [facility] Date(s): 04/22/22 - 04/22/22 [facility] [address] [place] [address] Discharge Disposition: Home or Self Care Attending Physician: Ranjit Mejias DO Admitting Physician: Ranjit Mejias DO Allergies, Adverse Reactions, Alerts Substance Reaction Severity Status amoxicillin Skin rash Unknown Active Assessment and Plan Future Appointments Immunizations Given and Recorded Vaccine Date Status Refusal Reason measles/mumps/rubella virus vaccine1 02/13/22 Recorded measles/mumps/rubella virus vaccine2 01/10/22 Recorded SARS-CoV-2 (COVID-19) Ad26 vaccine 06/13/21 Recorded tetanus/diphth/pertuss (Tdap) adult/adol 02/15/13 Recorde d Not Given Vaccine Date Status Refusal Reason influenza, unspecified formulation3 04/11/22 Not Given Patient Refuses 1Result Comment: [employer] [id number] Comment: [employer] [id number] Comment: influenza, injectable, quadrivalent, preservative free Patient Declined Last Modified by Rebekah Hope, Body And Fender Mechanic Apprentice 06-14-2020, 14:10 Medications betamethasone dipropionate, augmented 0.05% topical ointment 1 bee to hands, Topical, As Directed, TWICE DAILY FOR 2 WEEKS THEN TAKE A WEEK OFF AND REPEAT NEEDED Start Date: 04/11/22 Status: OrderedbuPROPion 150 mg/24 hours (XL) oral tablet, extended release 150 mg 1 tab, Oral, every 24 hr, for smoking cesation Start Date: 04/11/22 Status: OrderedDupixent Pre-filled Pen 300 mg/2 mL subcutaneous solution 300 mg = 2 mL, Subcutaneous, every 2 wk Start Date: 04/11/22 Status: OrderedFLUoxetine 20 mg oral capsule 90 EA, TAKE 1 CAPSULE BY MOUTH ONCE DAILY IN THE MORNING, 0 Refill(s) Start Date: 01/08/22 Status: Orderedhalobetasol 0.01% topical lotion 0 Refill(s) Start Date: 01/08/22 Status: Orderednicotine 21 mg/24 hr transdermal film, extended release 1 patches, TD, Daily, 0 Refill(s) Start Date: 04/11/22 Status: OrderedProtopic 0.1% topical ointment 30 g, APPLY TOPICALLY TO THE AFFECTED AREAS ON THE HANDS TWICE DAILY DURING THE WEEKENDS NEEDED, 0 Refill(s) Start Date: 01/08/22 Status: OrderedProvera 10 mg oral tablet 10 mg = 1 tab, Oral, Daily, # 10 tab, 0 Refill(s), Pharmacy: [id number] Start Date: 01/10/22 Stop Date: 01/20/22 Status: Ordered Problem List Condition Effective Dates Status Health Status Informant Anxiety(Confirmed) Active Contraception care Active management(Confirmed) Cyst of ovary(Confirmed) Active Neck pain(Confirmed) Active Nicotine dependence(Confirmed) Active Overweight(Confirmed) Active Periapical abscess(Confirmed) Active Pyelonephritis(Confirmed) Active Refractory migraine(Confirmed) Active Procedures Procedure Date Related Diagnosis Body Site Status Hysteroscopy with biopsy1 12/18/20 Co mpleted PAP test date2 05/09/14 Completed 1with Mirena IUD [id number]/15/2014- pap nl, Results Laboratory List Name Date SARS-CoV-2 (COVID-19) RNA (ID Now) 04/22/22 Most recent to oldest [Reference Range]: 1 SARS-CoV-2 (COVID-19) RNA (ID Now) [Not Detected] Not Detected (04/22/22 8:50 AM) Social History Social History Type Response Tobacco Current some day tobacco use r Tobacco Use:. a couple of cigarettes per week- trying to quit per day. Sex Female Patient Care team information PersonnelName: Laura Washington NP Address: Address: [place], [place] [address]
--- OUTSIDE RECORDS SUMMARY | 2022-06-07 10:33 | XMS_ITS | Clinical Summary ---
:1990 Author Organization [facility] [place] [address] Care Team Providers Name Role Phone Delfina Deepti Kassie HIGUERA Primary Care Provider Allergies Active Allergy Reactions Severity Noted Date Comments Amoxicillin 04/17/2021 Penicillins 04/17/2021 Medications Medication Sig Dispensed Refills Start Date End Date Status FLUoxetine (PROzac) TAKE 1 CAPSULE BY 0 03/30/2021 Active 20 mg Capsule MOUTH ONCE DAILY IN THE MORNING triamcinolone Apply to the hands 80 g 1 04/17/2021 Active (Kenalog) 0.1 % twice daily for 2 OintmentIndications: weeks, then once Dermatitis daily for 1 week augmented APPLY TOPICALLY 30 g 0 08/06/2021 Act alycia betamethasone TWICE DAILY TO THE dipropionate HANDS FOR 2 WEEKS, (Diprolene-AF) 0.05 TAKE A WEEK OFF AND % REPEAT NEEDED OintmentIndications: Dermatitis halobetasol apply topically 50 g 3 08/12/2021 A ctive (ULTRAVATE) 0.05 % twice daily on the Ointment bilateral hands twice daily Thursday through Thursday. tacrolimus Apply topically to 100 g 3 08/12/2021 Active (Protopic) 0.1 % affected areas on Ointment the hands during the weekends twice daily as needed dupilumab (Dupixent Inject 2 mLs 4 mL 5 12/31/2021 Active Pen) 300 mg/2 mL Pen subcutaneously every Injector 14 days. Active Problems No known active problems Social History Tobacco Use Types Packs/Day Years Used Date Current Every Day Smoker Smokeless Tobacco: Never Used Sex Assigned at Date Recorded Not on file Plan of Treatment Health Maintenance Due Date Last Done Comments Covid-19 Vaccine (#1) 1990 Pneumococcal Vaccine: At-Risk 5-64yrs (1 - PCV) 1995 HIV screen 2007 Hepatitis C Screening 2007 Lipid Screening 2007 Tdap adult 2008 Tetanus vaccine 2008 HPV test 2019 PAP Smear 2019 Influenza (Flu) vaccine (1 of 1 - Influenza standard 03/27/2022 series) Insurance Payer Benefit Plan / Subscriber ID Effective Dates Phone Addre ss Type Group [place] [id number] 2021-Prese [phone] [address] [place] [address] Care Teams Core Machine Operator Relationship Specialty Start Date End Date Deepti Mathis, FINGERER PCP - General Family Medicine 02/23/[address] [facility] [place] [phone]
--- OUTSIDE RECORDS SUMMARY | 2022-06-07 10:33 | XMS_ITS | Encounter Summary ---
:1990 Author Organization [facility] [place] [address] Care Team Providers Name Role Phone Deepti Mathis APRN Primary Care Provider Encounter Details Date Type Department Care Team Description 12/27/2021 Refill Dermatology at [facility] Nemesio Marr MD [address] [facility] [place] [address] [facility] [phone] [place], [place] [address] (Wo rk) Social History Tobacco Use Types Packs/Day Years Used Date Current Every Day Smoker Smokeless Tobacco: Never Used Sex Assigned at Date Recorded Not on file documented as of this encounter Plan of Treatment Not on filedocumented as of this encounter Visit Diagnoses Not on filedocumented in this encounter Care Teams Cna Per Diem Relationship Specialty Start Date End Date Deepti Mathis APRN PCP - General Family Medicine 02/23/[address] [place] [address] [place] [phone] documented as of this encounter
--- OUTSIDE RECORDS SUMMARY | 2022-06-07 10:33 | XMS_ITS | Encounter Summary ---
:1990 Author Organization [facility] [place] [address] Care Team Providers Name Role Phone Deepti Mathis KALEN Primary Care Provider Encounter Details Date Type Department Care Team Description 05/28/2021 Telephone Dermatology at [facility] Ace Landrum MD [address] [facility] [place] [address] [facility] [phone] [place], [place] [address] (Wo rk) Social History Tobacco Use Types Packs/Day Years Used Date Never Assessed Sex Assigned at Date Recorded Not on file documented as of this encounter Miscellaneous Notes Telephone Encounter - AdrianMarixa LPN - 05/28/2021 2:44 PM EDT Nurse Telephone Visit Note: Called Patient: Juana Krishna Date of . 1990 Today's Date: 05/28/2021 today to discuss hand dermatitis Last seen in clinic 04/17/21 by for hand dermatitis Patient reports hands are cracked and painful. We reviewed hand carea as recommended by to include reduce washing, dove soap and aquafor in addition to a moisturizer such as Cerave or Neutragena Solomon Islander Hand cream multiple times during the day. She reports that she is using an all naturalsoap on her hands. Advised to stop using that because we don't know what type of irritants may be init and stick to Dove unscented. She will increase moisturizing, use TAC twice a day for the next week and change to Dove unscented. Will follow up with Dr. Landrum via telehealth next week and will have Dr. Henriquez covering for Dr. Landrum review the above and make changes as needed. Telephone Encounter - Lou Dong - 05/28/2021 1:33 PM EDT Juana Krishna would please like a call with some care suggestions with her hand dermatitis. Juana has been using triamcinolone 0.1% ointment that is not helping the pain. Patient mentioned she cannot type or use a pen to write at work and would please like an alternative rx or suggestions of something to use in addition to the Kenalog. [phone] Thank you! documented in this encounter Plan of Treatment Not on filedocumented as of this encounter Visit Diagnoses Not on filedocumented in this encounter Care Teams Plastic Welding Machine Operator Relationship Specialty Start Date End Date Deepti Mathis, JUICE PACKAGING MACHINES SETTER PCP - General Family Medicine 02/23/[address] [place] [address] [place] [address] documented as of this encounter
--- OUTSIDE RECORDS SUMMARY | 2022-06-07 10:33 | XMS_ITS | Encounter Summary ---
:1990 Author Organization [facility] [place] [address] Care Team Providers Name Role Phone Deepti Mathis APRN Primary Care Provider Reason for Visit Reason Onset Date Comments Medication Refill 05/29/2021 Encounter Details Date Type Department Care Team Description 05/29/2021 Refill Dermatology at [facility] Chela Henriquez MD [address] [facility] [place] [address] [facility] [phone] [place], [place] [address] (Wo rk) Social History Tobacco Use Types Packs/Day Years Used Date Never Assessed Sex Assigned at Date Recorded Not on file documented as of this encounter Miscellaneous Notes Telephone Encounter - Marixa Campbell LPN - 05/29/2021 11:15 AM EDT Reviewed patients increase breakdown on hands with Dr. Henriquez new order pended per Dr. Henriquez for betamethasone ointment. Message left for patient documented in this encounter Plan of Treatment Not on filedocumented as of this encounter Visit Diagnoses Not on filedocumented in this encounter Care Teams Heel Packer Relationship Specialty Start Date End Date Deepti Mathis APRN PCP - General Family Medicine 02/23/[address] [place] [address] [place] [phone] documented as of this encounter
--- OUTSIDE RECORDS SUMMARY | 2022-06-07 10:33 | XMS_ITS | Encounter Summary ---
:1990 Author Organization [facility] [place] [address] Care Team Providers Name Role Phone Maggie Mathisomruddy Fernando KALEN Primary Care Provider Reason for Visit Reason Comments Prior Authorization Dupixent 300mg/2mL SOPN Encounter Details Date Type Department Care Team Description 10/09/2021 Specialty Pharmacy Pharmacy at [facility] Malick Manzo Prior Authorization [facility] (Dupixent 300mg/2mL [place]) [place] [phone] Social History Tobacco Use Types Packs/Day Years Used Date Current Every Day Smoker Smokeless Tobacco: Never Used Sex Assigned at Date Recorded Not on file documented as of this encounter Progress Notes Malick Manzo P - 10/09/2021 2:55 PM EDT [facility], Medication Prior Authorization Submission Patient: Juana Krishna Patient : 1990 Patient Address: [address] [address] (home) Medication Name: DUPIXENT 300 MG/2 ML SUBCUTANEOUS PEN INJECTOR Medication ID: Subscriber Insurance: [place] Medicaid Subscriber Insurance Comment: Fax: Physician: CORRIE SETHI Physician Comment: Sent Via: Fax Carver: Ref/Case/PA#: Medication Strength Frequency Requested: Dupixent 300mg/2mL SOPN. Inject the contents of two pens (600mg) SQ once for one dose. Then inject the contents of one pen (300mg) SQ every 14 days thereafter. Qty/Day Supply: 11/07 New Start: New to Therapy Diagnosis & ICD-10 Code: Atopic Dermatitis L20.9 Patient Notified: No Submission Notes: None Malick Manzo 10/09/21 2:59 PM Agus Maxwell - 10/09/2021 2:55 PM EDT [facility], Prior Authorization Approval Medication Name: DUPIXENT 300 MG/2 ML SUBCUTANEOUS PEN INJECTOR Medication ID: Approval Dates: 10/10/2021 to 04/12/2022 Insurance requirements/notes: None Other Notes: None Case/Reference #: [id number] Approval notification Received via: Fax Copay: $3.00 Copay assistance: None Copay Notes: Insurance mandated Pharmacy: [facility] Fillable at [facility]: Yes Pharmacy staff will be reaching out to the patient to inform them of their medication's approval by their insurance. If applicable, a pharmacist will speak with the patient to offer our specialty pharmacy services and to arrange delivery of their medication. Agus Maxwell 10/10/21 10:34 AM documented in this encounter Plan of Treatment Not on filedocumented as of this encounter Visit Diagnoses Not on filedocumented in this encounter Care Teams Technical Customer Support Specialist Relationship Specialty Start Date End Date Deepti Mathis APRN PCP - General Family Medicine 02/23/[address] [place] [address] [place] [phone] documented as of this encounter
--- OUTSIDE RECORDS SUMMARY | 2022-06-07 10:33 | XMS_ITS | Encounter Summary ---
:1990 Author Organization [facility] Address [address] [place] [address] Care Team Providers Name Role Phone Deepti Mathis KALEN Primary Care Provider Reason for Visit Reason Comments Medication Management Medication Refill Patient Education Encounter Details Date Type Department Care Team Description 11/22/2021 [address] [place] [facility] [place] Martinez [facility] Managemen t; [facility] Medication Refill; [place], [place] [phone] Social History Tobacco Use Types Packs/Day Years Used Date Current Every Day Smoker Smokeless Tobacco: Never Used Sex Assigned at Date Recorded Not on file documented as of this encounter Progress Notes Merlene Martinez RPH - 11/22/2021 11:59 PM EDT Specialty Pharmacy Consultation; Merlene Matrinez RPH Comprehensive Medication Management (CMM) Juana Krishna Diagnosis: Eczema Therapy Start Date: 10/17/2021 Contact in person or via telephone:Telephone Ms. Juana Krishna is a 31 y.o. (1990) female who was contacted in regard to specialty medication. Spoke with patient regarding Dupixent. A review of the medication therapy was performed. Themedication was Refilled as scheduled, and all medication related questions and concerns were addressed. The specialty pharmacy staff will follow up with the patient 5-7 days prior to next refill. Is the patient willing to proceed with the Clinical Assessment? Yes Summary and Recommendations: Juana Krishna was contacted via telephone for a review of Dupixent for the treatment of Eczema. Patient was educated on the importance of infection prevention and discussed the need to avoid live vaccines during treatment. Patient reports she is not experiencing any side effects from the Dupixentapart from a mild injection site reaction that she experienced after her last injection including redness at the injection site lasting about 12 hours. She reports her eczema symptoms have already improved dramatically on her hands. She notes they are clearing up with no pain or bleeding. She denies any recent topical steroid use, and notes that regular lotion has helped. A review of dosing, storage, and administration was completed. Patient is administering Dupixent 300mg subcutaneously every 14 days.She is storing the medication in the refrigerator and is performing proper site rotation, site sterilization, and allowing the medication to reach room temperature prior to injection. She reports her administers the Dupixent and denies any issues with the injection process. She declines needing a newsharps container with this refill and [facility] any [facility] or [facility]. Clinic follow-up needed: no Allergies and Drug intolerance: Allergies Allergen Reactions ??? Amoxicillin ??? Penicillins Problem List: There is no problem list on file for this patient. Special Dietary or Hydration Requirements: no Medication Reconciliation Discrepancies (compared to [facility] med list) no Medication List: Current Outpatient Medications Medication Sig Dispense Refill ??? dupilumab (Dupixent Pen) 300 mg/2 mL Pen Injector Inject the contents of two pens (600 mg) underthe skin once for the loading dose, then inject one pen (300 mg) once every other week. 4 mL 3 ??? halobetasol (ULTRAVATE) 0.05 % Ointment apply topically twice daily on the bilateral hands twicedaily Thursday through Thursday. 50 g 3 ??? tacrolimus (Protopic) 0.1 % Ointment Apply topically to affected areas on the hands during the weekends twice daily as needed 100 g 3 ??? augmented betamethasone dipropionate (Diprolene-AF) 0.05 % Ointment APPLY TOPICALLY TWICE DAILY TO THE HANDS FOR 2 WEEKS, TAKE A WEEK OFF AND REPEAT NEEDED 30 g 0 ??? FLUoxetine (PROzac) 20 mg Capsule TAKE 1 CAPSULE BY MOUTH ONCE DAILY IN THE MORNING ??? triamcinolone (Kenalog) 0.1 % Ointment Apply to the hands twice daily for 2 weeks, then once daily for 1 week 80 g 1 No current facility-administered medications for this visit. Most Recent Vitals: Ht Readings from Last 1 Encounters: No data found for Ht Wt Readings from Last 3 Encounters: No data found for Wt Temp Readings from Last 3 Encounters: No data found for Temp BP Readings from Last 3 Encounters: No data found for BP Pulse Readings from Last 3 Encounters: No data found for Pulse There is no height or weight on file to calculate BMI. Pertinent Lab values: No results found for: ALT, AST, GGT, ALKPHOS, BILITOT, BILIDIR, ALBUMIN, PROT No results found for: WBC, HGB, HCT, MCV, PLATELET No results found for: HA1C There is no immunization history on file for this patient. Assessment and Recommendations: Patient Counseling Patient informed of specialty services: Yes Patient accepted offer to supervisor counseling and guidance: select all, adherence/missed doses, cost of medications/cost implications, doses and administration, possible drug/OTC drug and food interactions, possible adverse side effects and management, pharmacy contact information, lab monitoring/follow up, possible drug/Rx drug interactions, safe handling, storage, and disposal, therapeutic rationale Medication Management Summary Topics discussed: reviewed medication changes since last visit, medication safety precautions education provided, drug interaction education provided to patient, safe handling, storage, and disposal discussed, possible adverse effects and management discussed, lab monitoring and follow-up discussed, cost of medications and cost implications discussed, adherence and missed doses discussed, health goals discussed, monitoring medication discussed, over the counter products discussed, preventative care discussed, reminder to refill or merchandise pickup/receiving associate medication discussed, self-monitoring discussed, timing of medications discussed, vaccination discussed, lifestyle modification education, referral needs discussed Time spent: 16-30 min Treatment Outcomes 11/25/2021 1130 Disease progression: Stable Patient Overall Status: Stable Reviewed in detail with patient: Dose appropriateness based on recommended standard dosing Current medication list including OTC medications Medication and disease problems Allergies Comorbid conditions/ Problem List Past adverse events if any Special needs of the patient including physical and cognitive limitations Goals of therapy and management strategies Warnings, precautions, and contraindications Side effects Drug-drug and drug-food interactions Administration instructions including dose, frequency and method Handling, storage, and disposal Verifying expiration dates on products before use Rotating medication inventory to use oldest product first Relevant lab data Treatments impact on disease Dose appropriateness based on recommended standard dosing schedule, including any variations from FDA approved dosing Patient verbalizes understanding and is able to read-back instructions on self-administration/injection, proper storage, drug stability, importance of adherence and management strategies, side effect avoidance and mitigation strategies, and interruptions in therapy: Yes Patient is aware a licensed pharmacist is available 24 hours a day, 7 days a week to discuss medication-related questions or concerns: No Patient verbalizes understanding of the common side effect profile of their medication. The patient is able to call 911 or seek urgent care if signs/symptoms of allergy or harmful adverse reactions occur: No Additional care/services needed: No Additional equipment/supplies required: No Patient satisfied with care/services provided: Yes Specialty Assessment: Physical and Cognitive Assessment: Functional limitations identified: No Cognitive limitations identified: No Concern regarding orientation/memory: No Concern with reasoning/judgement: No Is patient a fall risk: No Social Assessment: Does patient have a primary day care worker: No Does patient have an emergency contact on file: Yes Does patient need referral to social media director: No Does patient need referral to advocacy group: No Home Health Assessment: Is the patient in a safe home environment?: Yes Is the patient able to store their medication as directed?: Yes Does the patient have a support network at home?: Yes Reviewed potential home safety hazards with patient: Yes Economic Assessment: Patient is agreeable to medication copay: Yes Actual Copay: $: 3 Days Supply: 28 Welcome Packet and Rights and Responsibilities: Patient provided welcome packet/rights and responsibilities: Yes Date Confirmed: 10/24/21 Confirmation: Verbal Specialty Med Adherence Patient Demonstrates Understanding of Importance of Adherence: Yes Educational Information or Adherence Tools Provided: No Patient Reported X Missed Doses in the Last Month: 0 Provider-Estimated Medication Adherence Level: 90-100% Adherence Tools Used: directed education Therapy Assessment: Current Medication Dosing/Route/Frequency: Dupixent 300mg/2ml - inject the contents of 1 pen (300mg)subcutaneously every 14 days Appropriate Therapy: Yes Effective: yes Current Affected Areas: Hands Improving Affected Areas: hands Worsening Affected Areas: none Total BSA involved: n/a Recent Skin Exacerbations/Flaring: no Recent Topical Corticosteroid Use: no Relapsing/Remitting Factors: no Patient-Reported Side Effects: yes - mild injection site reaction with last injection lasting about 12 hours Recent Infections: no Counseling: Utilizing appropriate injection technique: yes - administers injection Rotation of Injection Sites: Yes Room Temperature Medication at Time of Injection: Yes Patient Goals: Patient's specific desired goal: skin healing and ability to complete ADL without interference Measured by: pt reported s/sx and provider's physical examination Time-frame to meet goal: 3-6 months Is the patient on track to achieve goals of therapy? Yes If no, what are the barriers and action plan to reach the goal: n/a Care Plan and Interventions: Care Plan Reviewed and Approved by both Pharmacist and Patient: Yes Did Care Plan Change? No If yes: Change to plans of care based on: Patient's request: n/a Condition: n/a Response to therapy: n/a Provider request: n/a Follow-up needed: No Interventions (if applicable): no Patient experienced change in condition that affects treatment: no Patient Satisfied with Therapy: yes - Patient feels Dupixent is working well to control her symptoms Pharmacist follow-up needed: No Patient understands no changes to current drug regimen were made at the appointment and that [facility] is providing recommendations (summary located at top of note) for provider review and follow up. Merlene Martinez RPH 11/25/21 11:31 AM documented in this encounter Plan of Treatment Not on filedocumented as of this encounter Visit Diagnoses Not on filedocumented in this encounter Care Teams Biofuels Research Scientist Relationship Specialty Start Date End Date Deepti Mathis APRN PCP - General Family Medicine 02/23/[address] [place] [address] [place] [phone] documented as of this encounter
--- OUTSIDE RECORDS SUMMARY | 2022-06-07 10:33 | XMS_ITS | Encounter Summary ---
:1990 Author Organization [facility] [place] [address] Care Team Providers Name Role Phone Deepti Mathis KALEN Primary Care Provider Reason for Visit Reason Comments Patient Education Encounter Details Date Type Department Care Team Description 09/10/2021 Special[place] [facility] [place] Gabrielle Butcher, [place] [phone] Social History Tobacco Use Types Packs/Day Years Used Date Current Every Day Smoker Smokeless Tobacco: Never Used Sex Assigned at Date Recorded Not on file documented as of this encounter Progress Notes Gabrielle Butcher [facility] - 09/10/2021 1:16 PM EST Specialty Pharmacy Consultation; Gabrielle Butcher PharmD, [facility] Comprehensive Medication Management (CMM) Juana Krishna Diagnosis: Eczema Therapy Start Date: TBD-new start Contact in person or via telephone: telephone Ms. Juana Krishna is a 31 y.o. (1990) female who was contacted in regard to specialty medication. Spoke with patient regarding Dupixent. A review of the medication therapy was performed. Is the patient willing to proceed with the Clinical Assessment? Yes Summary and Recommendations: ??? Comprehensive review of Dupixent discussed with the patient. Topics covered include: warnings/precautions & contraindications, patient's dose and frequency of administration, personal indication for use, potential adverse effects, drug &/or food interactions, monitoring/safety parameters, drug MOA, proper storage/handling recommendations, and anticipated time to effect. ? ? Medication & allergy reconciliation completed ??? Patient reported that she does not like needles but thinks she could successfully self-administer with the Dupixent pen. She was encouraged to schedule a teaching appt for first injection for education and medical oversight. ??? Per provider (Dr. Marr), she has tried topical tacrolimus from 2019- in combination withaugmented betamethasone. Despite these tx options her eczema persists. ??? Patient is aware of the prior authorization process and timeline and was given [facility] specialty pharmacy contact info for any questions Clinic follow-up needed: yes - injection teaching and follow up at regular intervals Allergies and Drug intolerance: Allergies Allergen Reactions ??? Amoxicillin ??? Penicillins Problem List: There is no problem list on file for this patient. Special Dietary or Hydration Requirements: no Medication Reconciliation Discrepancies (compared to [facility] med list) -bupropion removed Medication List: Current Outpatient Medications Medication Sig Dispense Refill ??? dupilumab (Dupixent Pen) 300 mg/2 mL Pen Injector Inject the contents of two pens (600 mg) underthe skin once for the loading dose, then inject one pen (300 mg) once every other week. 4 mL 3 ??? predniSONE (Deltasone) 20 mg Tablet Take 3 tablets by mouth daily for 7 days, THEN 2 tablets daily for 7 days, THEN 1 tablet daily for 7 days, THEN 0.5 tablets daily for 7 days. 46 tablet 0 ??? halobetasol (ULTRAVATE) 0.05 % Ointment apply [...] specialty services: Yes Patient accepted offer to dormitory counselor: select all, adherence/missed doses, cost of medications/cost [...] the counter products discussed, preventative care discussed, recommendations to doctor discussed, reminder to refill or picker medication discussed, self-monitoring discussed, start medication discussed, timing of medications discussed, lifestyle modification education, referral needs discussed Time spent: 1-15 min Treatment Outcomes 09/16/2021 0900 Disease progression: Moderate Patient Overall Status: Worsensed Reviewed in detail with patient: Dose appropriateness [...] week to discuss medication-related questions or concerns: Yes Patient verbalizes understanding of the common side effect profile of their medication. The patient is able to call 911 or seek urgent care if signs/symptoms of allergy or harmful adverse reactions occur: Yes Additional care/services needed: No Additional equipment/supplies required: No Patient satisfied with care/services provided: Yes Specialty Assessment: Physical and Cognitive Assessment: Functional limitations identified: No Cognitive limitations identified: No Concern regarding orientation/memory: No Concern with reasoning/judgement: No Is patient a fall risk: No Social Assessment: Does patient have a primary post acute care nurse practitioner: No Does patient have an emergency contact on file: Yes Does patient need referral to social science analyst: No Does patient need referral to advocacy group: No Home Health Assessment: Is the patient in a safe home environment?: Yes Is the patient able to store their medication as directed?: Yes Does the patient have a support network at home?: Yes Reviewed potential home safety hazards with patient: Yes Economic Assessment: Patient is agreeable to medication copay: Other (see comments) (Comment: TBD-new start) Welcome Packet and Rights and Responsibilities: Patient provided welcome packet/rights and responsibilities: No Specialty Med Adherence Patient Demonstrates Understanding of Importance of Adherence: Yes Educational Information or Adherence Tools Provided: Yes Therapy Assessment: Current Medication Dosing/Route/Frequency: Dupixent 300 mg/2mL SC injection--2 pens (600 mg) on day 1, then 300 mg Q14 days thereafter. Appropriate Therapy: Yes Current Affected Areas: both hands complicated by painful fissures which interferes with her ability to work Total BSA involved: unspecified Recent Skin Exacerbations/Flaring: yes - currently flaring/uncontrolled Recent Topical Corticosteroid Use: yes - topical and oral corticosteroids Relapsing/Remitting Factors: no Diagnosis of Psoriatic Arthritis: Yes Patient's Problems/Needs: uncontrolled eczema interfering with her ability to work Expected Outcome: skin healing Patient's goals: Patient's specific desired goal: skin healing and ability to complete ADL without interference Measured by: pt reported s/sx and provider's physical examination Time-frame to meet goal: 3-6 months Monitoring requirements for prescribed medication: s/sx of arthralgia, hypersensitivity reactions, ocular adverse effects, s/sx of infection Care Plan Reviewed and Approved by both Pharmacist and Patient: Yes Interventions (if applicable): Yes n/a Pharmacist follow-up needed: Yes Patient understands no changes to current drug regimen were made at the appointment and that [facility] is providing recommendations (summary located at top of note) for provider review and follow up. Gabrielle Butcher PharmD, [facility] 09/16/21 9:01 AM documented in this encounter Plan of Treatment Not on filedocumented as of this encounter Visit Diagnoses Not on filedocumented in this encounter Care Teams Collateral Specialist Relationship Specialty Start Date End Date Deepti Mathis, DEPORTATION OFFICER PCP - General Family Medicine 02/23/[address] [place] [address] [place] [phone] documented as of this encounter
--- OUTSIDE RECORDS SUMMARY | 2022-06-07 10:33 | XMS_ITS | Continuity of Care Document ---
:1990 Author Organization [facility] Address [address] [place] [address] Care Team Providers Name Role Phone Laura [place] Primary Care Physician [facility] Date(s): 06/05/22 - 06/05/22 [facility] [address] [place] [address] Encounter Diagnosis Ovarian cyst (Discharge Diagnosis) - 06/05/22 Unspecified ovarian cyst, left side (Final) - Discharge Disposition: Home or Self Care Attending Physician: Miguel A Pickett MD Admitting Physician: Miguel A Pickett MD Allergies, Adverse Reactions, Alerts Substance Reaction Severity Status amoxicillin Skin rash Unknown Active Assessment and Plan Future Appointments Functional Status 06/05/22 Other exposure to Infectious Disease None Immunizations Given and Recorded Vaccine Date Status Refusal Reason influenza virus vaccine, inactivated1 05/30/22 Recorded measles/mumps/rubella virus vaccine2 02/13/22 Recorded measles/mumps/rubella virus vaccine3 01/10/22 Recorded SARS-CoV-2 (COVID-19) Ad26 vaccine 06/13/21 Recorded tetanus/diphth/pertuss (Tdap) adult/adol 02/15/13 Recorde d Not Given Vaccine Date Status Refusal Reason influenza, unspecified formulation4, 5 04/11/22 Not Given Patient Refuses 1Result Comment: EMPLOYEE [id number] Comment: EMPLOYEE HEALTH VACCINATION3 Result Comment: EMPLOYEE HEALTH [id number] Comment: influenza, injectable, quadrivalent, preservative free Patient Declined Last Modified by Rebekah Hope Mint Machine Operator 06-14-2020, 14:105Result Comment: influenza, injectable, quadrivalent, preservative free Patient Declined Last Modified by Rebekah Hope Mint Machine Operator 06-14-2020, 14:10 RECEIVED VACCINE Medications betamethasone dipropionate, augmented 0.05% topical ointment 1 bee to hands, Topical, As Directed, TWICE DAILY FOR 2 WEEKS THEN TAKE A WEEK OFF AND REPEAT NEEDED Start Date: 04/11/22 Status: OrderedChantix Starter Pack 0.5 mg-1 mg oral tablet See Instructions, take kit as instructed, # 1 kits, 0 Refill(s), Pharmacy: [id number] Start Date: 05/08/22 Status: OrderedDupixent Pre-filled Pen 300 mg/2 mL subcutaneous solution 300 mg = 2 mL, Subcutaneous, every 2 wk Start Date: 04/11/22 Status: OrderedFLUoxetine 20 mg oral capsule 20 mg = 1 cap, Oral, Daily, 90 EA, TAKE 1 CAPSULE BY MOUTH ONCE DAILY IN THE MORNING, # 90 cap, 0 Refill(s), Pharmacy: [id number] Start Date: 05/16/22 Status: [...] test date2 05/09/14 Completed 1with Mirena IUD [id number]- pap nl, Results Laboratory List Name Date C-Reactive Protein High Sensitivity (CRP HS) 06/05/22 Procalcitonin 06/05/22 CBC w/o Diff (CBC) 06/05/22 Comprehensive Metabolic Panel (CMP) 06/05/22 Urinalysis with Micro if Indicated and Culture if Mary Beth cated 06/05/22 Urinalysis Microscopic 06/05/22 Most recent to oldest [Reference Range]: 1 WBC [5.0-10.0 x10^3/mcL] 12.2 x10^3/mcL *HI* (06/05/22 1:00 PM) RBC [4.1-5.3 x10^6/mcL] 4.9 x10^6/mcL (06/05/22 1:00 PM) BUN [7-18 mg/dL] 12 mg/dL (06/05/22 1:00 PM) UA Color Yellow (06/05/22 1:00 PM) UA WBC [0-3] 3-5 *ABN* (06/05/22 1:00 PM) Glucose Level [74-106 mg/dL] 98 mg/dL (06/05/22 1:00 PM) Potassium Level [3.5-5.1 mmol/L] 3.9 mmol/L (06/05/22 1:00 PM) MCV [80.0-96.0] 88.4 (06/05/22 1:00 PM) UA Urobilinogen Positive *ABN* (06/05/22 1:00 PM) UA Bili [Negative] Negative (06/05/22 1:00 PM) UA Ketones Negative (06/05/22 1:00 PM) AST [15-37 unit/L] 29 unit/L (06/05/22 1:00 PM) ALT [14-59 unit/L] 49 unit/L (06/05/22 1:00 PM) MCHC [31.0-35.0 g/dL] 33.9 g/dL (06/05/22 1:00 PM) Sodium Level [136-145 mmol/L] 137 mmol/L (06/05/22 1:00 PM) UA RBC [0-2] 0-2 (06/05/22 1:00 PM) UA Leuk Est Trace *ABN* (06/05/22 1:00 PM) UA Nitrite Negative (06/05/22 1:00 PM) UA Glucose [Negative] Negative (06/05/22 1:00 PM) Hct [37.0-47.0 %] 43.3 % (06/05/22 1:00 PM) UA Bacteria None Seen /HPF (06/05/22 1:00 PM) Calcium Level [8.5-10.1 mg/dL] 9.2 mg/dL (06/05/22 1:00 PM) Albumin Level [3.4-5.0 g/dL] 4.3 g/dL (06/05/22 1:00 PM) Protein Total [6.4-8.2 g/dL] 8.1 g/dL (06/05/22 1:00 PM) UA Protein 1+ *ABN* (06/05/22 1:00 PM) MCH [26.0-32.0 pg] 30.0 pg (06/05/22 1:00 PM) Bilirubin Total [0.2-1.0 mg/dL] 0.5 mg/dL (06/05/22 1:00 PM) Hgb [12.0-16.0 g/dL] 14.7 g/dL (06/05/22 1:00 PM) Alk Phos [46-146 unit/L] 70 unit/L (06/05/22 1:00 PM) UA Blood Trace *ABN* (06/05/22 1:00 PM) UA Mucous Few /HPF *ABN* (06/05/22 1:00 PM) UA Spec Grav 1.025 *NA* (06/05/22 1:00 PM) Platelets [130-450 x10^3/mcL] 280 x10^3/mcL (06/05/22 1:00 PM) CO2 [21-32 mmol/L] 29 mmol/L (06/05/22 1:00 PM) UA Squam Epithelial [None Seen] Moderate *ABN* (06/05/22 1:00 PM) UA pH 6.0 *NA* (06/05/22 1:00 PM) eGFR Non-AA [>=60] 104 (06/05/22 1:00 PM) eGFR AA [>=60] 104 (06/05/22 1:00 PM) UA Appear Hazy *ABN* (06/05/22 1:00 PM) Chloride Level [98-107 mmol/L] 100 mmol/L (06/05/22 1:00 PM) Procalcitonin [0.00-0.50 ng/mL] <0.15 ng/mL (06/05/22 1:51 PM) RDW-CV [11.7-17.0 %] 12.7 % (06/05/22 1:00 PM) CRP High Sens [0.00-3.00 mg/L] 4.52 mg/L *HI* (06/05/22 1:51 PM) UA Culture Ind?. Indicated (06/05/22 1:00 PM) Creatinine Level [0.55-1.02 mg/dL] 0.77 mg/dL (06/05/22 1:00 PM) Orders for Microbiology Reports Name Date Urine Culture 06/05/22 Microbiology Reports TEST:Urine Culture STATUS:Order in Progress BODY SITE: SOURCE:Urine COLLECTED DATE/TIME:06/05/22 1:00 PMPRELIMINARY REPORT>100,000 cfu/ml Mixed Gram Positive Etelvina Vital Signs Most recent to oldest [Reference Range]: 1 2 Temperature Temporal Artery [36-38 Deg C] 36.0 Deg C (06/05/22 12:30 PM) Peripheral Pulse Rate [60-100 bpm] 85 bpm 81 bp m (06/05/22 6:31 PM) (06/05/22 12:30 PM) Respiratory Rate [12-24 br/min] 18 br/min 16 br/mi n (06/05/22 6:31 PM) (06/05/22 12:30 PM) Blood Pressure [90-140/60-90 mmHg] 186/111 mmHg 175/1 09 mmHg *HI* *HI* (06/05/22 6:31 PM) (06/05/22 12:30 PM) Weight Dosing 79.38 kg (06/05/22 12:49 PM) Weight Estimated 79.38 kg (06/05/22 12:30 PM) Height/Length Dosing 163.000 cm (06/05/22 12:49 PM) Height/Length Estimated 163.000 cm (06/05/22 12:30 PM) Social History Social History Type Response Tobacco Former tobacco user Tobacco Use:.1 Sex Female 1quit 30 days ago Physician Emergency department Note Miguel A Pickett MD: PERFORM Event Display: ED Note Physician Authored Date: [id number] ERIC MAGALLANES :1990 Age:32 years Sex:Female Visit Date:06/05/2022 Primary Care Physician: Laura [place] NP Basic Information Time Seen: Miguel A Pickett MD / 06/05/2022 12:33 Chief Complaint x2 days left sided intermittent abd pain, n/v/d, BLANKENSHIP, body aches, denies urinary symptoms, chest pain History Of Present Illness: Presenting concern is??abdominal pain??and vomiting. ??Time of onset is yesterday morning.?? Patient has vomited times once today. ??She has been??fatigued since's side.?? The pain has been stable over time. ??The pain is located in the left??lower abdomen. ??It waxes and wanes.?? Similar to prior kid silver infection. ??Radiates to the groin.?? Quality is sharp and stabbing. ??Aggravating factors??are vomiting. Review of Systems: Review of systems is negative for fever, chest pain, cough, shortness of breath, urinary symptoms, abnormal bleeding, skin rash. ??Review of systems is positive for??headache, myalgias, abdominal pain, slight diarrhea. Physical Exam Vitals & Measurements T:??36.0?C ??(Temporal Artery)?? HR:??81??(Peripheral)?? RR:??16?? BP:??175/109?? SpO2:??98%?? HT:??163.000??cm?? WT:??79.38??kg??(Estimated)?? Pain Score:??5?? O2 Therapy:??Room air?? Patient is no acute distress. ??She converses normally. ??Establishes maintains eye contact. ??Respirations are normal. ??Chest auscultation is normal.?? Heart auscultation is normal. ??Abdominal palpation reveals??minimal left lower quadrant discomfort.?? There is mild left CVA tenderness. ??Extremity exam is normal. ??Skin exam is normal. ??Mental status exam is normal. Procedure No Qualifying Data Assessment/Plan 1.??Ovarian cyst??N83.209 Ordered: Discharge Patient, 06/05/22 17:59:00 EST, Home Independently, Constant Indicator ?? Orders: cefTRIAXone, 1 g = 1 EA, IV Piggyback, Soln-IV, every 24 hr, Antibiotic Indication Other (specify in order comments), Administer over: 0.5 hr, First Dose: 06/05/22 13:42:00 EST, STAT, 200 mL/hr Urine Culture, Urine, Stat collect, ST - Stat, 06/05/22 13:00:43 EST, Once, Nurse collect, Collected, 06/05/22 13:00:43 EST, Print Label, [id number] Medication Reconciliation Unchanged betamethasone topical (betamethasone dipropionate, augmented 0.05% [...] ???Hysteroscopy with biopsy (12/19/2020)???PAP test date (05/10/2014) Medication Administration Given 0.9% NaCl bolus, 2000 mL, IV Piggyback cefTRIAXone, IV Piggyback ondansetron, 4 mg, IV Push Allergies amoxicillin??(Skin rash) Social History Alcohol Never Electronic Cigarette/Vaping Electronic Cigarette Use: Never. Sexual Other contraceptive use: IUD. Substance Use Never Tobacco Former tobacco user Tobacco Use:.- Comments: quit 30 days ago Family History Hypertension: Father. Lab Results CBC and Differential?? LATEST RESULTS?? WBC?? 06/05/22 13:00?? 12.2 ??High?? RBC?? 06/05/22 13:00?? 4.9?? Hgb?? 06/05/22 13:00?? 14.7?? Hct?? 06/05/22 13:00?? 43.3?? MCV?? 06/05/22 13:00?? 88.4?? MCH?? 06/05/22 13:00?? 30.0?? MCHC?? 06/05/22 13:00?? 33.9?? RDW-CV?? 06/05/22 13:00?? 12.7?? Platelets?? 06/05/22 13:00?? 280? Routine Chemistry?? LATEST RESULTS?? Sodium Level?? 06/05/22 13:00?? 137?? Potassium Level?? 06/05/22 13:00?? 3.9?? Chloride Level?? 06/05/22 13:00?? 100?? CO2?? 06/05/22 13:00?? 29?? Alk Phos?? 06/05/22 13:00?? 70?? AST?? 06/05/22 13:00?? 29?? ALT?? 06/05/22 13:00?? 49?? BUN?? 06/05/22 13:00?? 12?? Glucose Level?? 06/05/22 13:00?? 98?? Creatinine Level?? 06/05/22 13:00?? 0.77?? eGFR AA?? 06/05/22 13:00?? 104?? eGFR Non-AA?? 06/05/22 13:00?? 104?? Calcium Level?? 06/05/22 13:00?? 9.2?? Protein Total?? 06/05/22 13:00?? 8.1?? Albumin Level?? 06/05/22 13:00?? 4.3?? Bilirubin Total?? 06/05/22 13:00?? 0.5?? CRP High Sens?? 06/05/22 13:51?? 4.52 ??High? Endocrinology?? LATEST RESULTS?? Procalcitonin?? 06/05/22 13:51?? <0.15? UA Macroscopic?? LATEST RESULTS?? UA Color?? 06/05/22 13:00?? Yellow?? UA Appear?? 06/05/22 13:00?? Hazy Abnormal?? UA Glucose?? 06/05/22 13:00?? Negative?? UA Bili?? 06/05/22 13:00?? Negative?? UA Ketones?? 06/05/22 13:00?? Negative?? UA Spec Grav?? 06/05/22 13:00?? 1.025?? UA Blood?? 06/05/22 13:00?? Trace Abnormal?? UA pH?? 06/05/22 13:00?? 6.0?? UA Protein?? 06/05/22 13:00?? 1+ Abnormal?? UA Urobilinogen?? 06/05/22 13:00?? Positive Abnormal?? UA Nitrite?? 06/05/22 13:00?? Negative?? UA Leuk Est?? 06/05/22 13:00?? Trace Abnormal?? UA Culture Ind?.?? 06/05/22 13:00?? Indicated? UA Microscopic?? LATEST RESULTS?? UA WBC?? 06/05/22 13:00?? 3-5 Abnormal?? UA RBC?? 06/05/22 13:00?? 0-2?? UA Squam Epithelial?? 06/05/22 13:00?? Moderate Abnormal?? UA Mucous?? 06/05/22 13:00?? Few Abnormal?? UA Bacteria?? 06/05/22 13:00?? None Seen? Electronically Signed on 06/05/22 05:59 PM Miguel A Pickett MD Emergency department Discharge instructions Miguel A Pickett MD: PERFORM Event Display: ED Discharge Information Authored Date: ERIC MAGALLANES :1990 Age:32 years Sex:Female Visit Date:06/05/2022 Primary Care Physician: Laura [place] WET [employer] CONVEYOR TENDER Discharge Instructions We would like to thank you for allowing us to assist you with your healthcare needs. The following includes patient education materials and information regarding your injury/illness. Diagnosis from Today's Visit Ovarian cyst Discharge Vitals Temperature??(Temporal Artery) 96.8 ??F (36.0 ??C) Heart Rate??(Peripheral) 81 Respiratory Rate?? 16 Blood Pressure?? 175/109?? Height?? 64.17 in (163.000 cm) Weight??(Estimated) 175.03 lb (79.38 kg) Allergies amoxicillin??(Skin rash) What to Do Next Instructions from Your Care Team /+You have a left ovarian cyst. ?? For pain take ibuprofen 600 mg with food up to 4 times per day and/or??acetaminophen 1000 mg up to 4 times per day. ?? For nausea take 1 ondansetron up to 4 times per day. ?? Follow-up with your plywood layup line core feeder??if failure to improve.? Miguel A Pickett MD Upcoming Scheduled Appointments Thursday 2:40 PM EST [...] How Much When Why Instructions Next Dose Unchanged betamethasone topical (betamethasone dipropionate, augmented 0.05% [...] quit smoking take kit as instructed ?? Tests Performed Medications and Immunizations Administered Given 0.9% NaCl bolus, 2000 mL, IV Piggyback cefTRIAXone, IV Piggyback ondansetron, 4 mg, IV Push Lab Test Name Test Result Date/Time WBC 12.2 x10^3/mcL 06/05/2022 13:00 EST RBC 4.9 x10^6/mcL 06/05/2022 13:00 EST Hgb 14.7 g/dL 06/05/2022 13:00 EST Hct 43.3 % 06/05/2022 13:00 EST MCV 88.4 06/05/2022 13:00 EST MCH 30.0 pg 06/05/2022 13:00 EST MCHC 33.9 g/dL 06/05/2022 13:00 EST RDW-CV 12.7 % 06/05/2022 13:00 EST Platelets 280 x10^3/mcL 06/05/2022 13:00 EST Sodium Level 137 mmol/L 06/05/2022 13:00 EST Potassium Level 3.9 mmol/L 06/05/2022 13:00 EST Chloride Level 100 mmol/L 06/05/2022 13:00 EST CO2 29 mmol/L 06/05/2022 13:00 EST Alk Phos 70 unit/L 06/05/2022 13:00 EST AST 29 unit/L 06/05/2022 13:00 EST ALT 49 unit/L 06/05/2022 13:00 EST BUN 12 mg/dL 06/05/2022 13:00 EST Glucose Level 98 mg/dL 06/05/2022 13:00 EST Creatinine Level 0.77 mg/dL 06/05/2022 13:00 EST eGFR AA 104 06/05/2022 13:00 EST eGFR Non-AA 104 06/05/2022 13:00 EST Calcium Level 9.2 mg/dL 06/05/2022 13:00 EST Protein Total 8.1 g/dL 06/05/2022 13:00 EST Albumin Level 4.3 g/dL 06/05/2022 13:00 EST Bilirubin Total 0.5 mg/dL 06/05/2022 13:00 EST CRP High Sens 4.52 mg/L 06/05/2022 13:51 EST Procalcitonin <0.15 ng/mL 06/05/2022 13:51 EST UA Color YELLOW. 06/05/2022 13:00 EST UA Appear Hazy- Clinitek 06/05/2022 13:00 EST UA Glucose NEGATIVE 06/05/2022 13:00 EST UA Bili NEGATIVE 06/05/2022 13:00 EST UA Ketones NEGATIVE 06/05/2022 13:00 EST UA Spec Grav 1.025 06/05/2022 13:00 EST UA Blood TRACE. 06/05/2022 13:00 EST UA pH 6.0 06/05/2022 13:00 EST UA Protein 1+ 06/05/2022 13:00 EST UA Urobilinogen 1.0 Uro 06/05/2022 13:00 EST UA Nitrite NEGATIVE 06/05/2022 13:00 EST UA Leuk Est TRACE. 06/05/2022 13:00 EST UA Culture Ind?. Indicated 06/05/2022 13:00 EST UA WBC 3-5 06/05/2022 13:00 EST UA RBC 0-2 06/05/2022 13:00 EST UA Squam Epithelial Moderate 06/05/2022 13:00 EST UA Mucous Few 06/05/2022 13:00 EST UA Bacteria None Seen 06/05/2022 13:00 EST Patient/Cook Dessert Signature Patient Name:ERIC MAGALLANES I have received this information and my questions have been answered. Patient/Cook Dessert Name: Patient/Cook Dessert Signature: Relationship to Patient: Witness Name/Signature: Date: Electronically Signed on: 06/05/2022 18:23 ESTSigned by:Miguel A Tamayo MD: PERFORM Event Display: ED Discharge Information Authored Date: [id number] ERIC MAGALLANES :1990 Age:32 years Sex:Female Visit Date:06/05/2022 Primary Care Physician: Laura [place] WET [employer] TENDER Discharge Instructions We would like to thank you for allowing us to assist you with your healthcare needs. The following includes patient education materials and information regarding your injury/illness. Diagnosis from Today's Visit Ovarian cyst Discharge Vitals Temperature??(Temporal Artery) 96.8 ??F (36.0 ??C) Heart Rate??(Peripheral) 81 Respiratory Rate?? 16 Blood Pressure?? 175/109?? Height?? 64.17 in (163.000 cm) Weight??(Estimated) 175.03 lb (79.38 kg) Allergies amoxicillin??(Skin rash) What to Do Next Instructions from Your Care Team /+You have a left ovarian cyst. ?? For pain take ibuprofen 600 mg with food??but it is not??2 things 1 I had this fellow chains??Melody and that he is 23 years old??and he has acute loss of function of his right arm??got a teleneurology consult??and they say he needs??MRI of his head and cervical spine??no??having he??exam by me asit is there not much there is there is??well day now he just??right I talked to the neurologist??but??it there its its its like there is there is some strange numbness to the presentation??is interesting a the story is??he was Upcoming Scheduled Appointments Thursday 2:40 PM EST [...] How Much When Why Instructions Next Dose Unchanged betamethasone topical (betamethasone dipropionate, augmented 0.05% [...] quit smoking take kit as instructed ?? Tests Performed Medications and Immunizations Administered Given 0.9% NaCl bolus, 2000 mL, IV Piggyback cefTRIAXone, IV Piggyback ondansetron, 4 mg, IV Push Lab Test Name Test Result Date/Time WBC 12.2 x10^3/mcL 06/05/2022 13:00 EST RBC 4.9 x10^6/mcL 06/05/2022 13:00 EST Hgb 14.7 g/dL 06/05/2022 13:00 EST Hct 43.3 % 06/05/2022 13:00 EST MCV 88.4 06/05/2022 13:00 EST MCH 30.0 pg 06/05/2022 13:00 EST MCHC 33.9 g/dL 06/05/2022 13:00 EST RDW-CV 12.7 % 06/05/2022 13:00 EST Platelets 280 x10^3/mcL 06/05/2022 13:00 EST Sodium Level 137 mmol/L 06/05/2022 13:00 EST Potassium Level 3.9 mmol/L 06/05/2022 13:00 EST Chloride Level 100 mmol/L 06/05/2022 13:00 EST CO2 29 mmol/L 06/05/2022 13:00 EST Alk Phos 70 unit/L 06/05/2022 13:00 EST AST 29 unit/L 06/05/2022 13:00 EST ALT 49 unit/L 06/05/2022 13:00 EST BUN 12 mg/dL 06/05/2022 13:00 EST Glucose Level 98 mg/dL 06/05/2022 13:00 EST Creatinine Level 0.77 mg/dL 06/05/2022 13:00 EST eGFR AA 104 06/05/2022 13:00 EST eGFR Non-AA 104 06/05/2022 13:00 EST Calcium Level 9.2 mg/dL 06/05/2022 13:00 EST Protein Total 8.1 g/dL 06/05/2022 13:00 EST Albumin Level 4.3 g/dL 06/05/2022 13:00 EST Bilirubin Total 0.5 mg/dL 06/05/2022 13:00 EST CRP High Sens 4.52 mg/L 06/05/2022 13:51 EST Procalcitonin <0.15 ng/mL 06/05/2022 13:51 EST UA Color YELLOW. 06/05/2022 13:00 EST UA Appear Hazy- Clinitek 06/05/2022 13:00 EST UA Glucose NEGATIVE 06/05/2022 13:00 EST UA Bili NEGATIVE 06/05/2022 13:00 EST UA Ketones NEGATIVE 06/05/2022 13:00 EST UA Spec Grav 1.025 06/05/2022 13:00 EST UA Blood TRACE. 06/05/2022 13:00 EST UA pH 6.0 06/05/2022 13:00 EST UA Protein 1+ 06/05/2022 13:00 EST UA Urobilinogen 1.0 Uro 06/05/2022 13:00 EST UA Nitrite NEGATIVE 06/05/2022 13:00 EST UA Leuk Est TRACE. 06/05/2022 13:00 EST UA Culture Ind?. Indicated 06/05/2022 13:00 EST UA WBC 3-5 06/05/2022 13:00 EST UA RBC 0-2 06/05/2022 13:00 EST UA Squam Epithelial Moderate 06/05/2022 13:00 EST UA Mucous Few 06/05/2022 13:00 EST UA Bacteria None Seen 06/05/2022 13:00 EST Patient/Cook Dessert Signature Patient Name:ERIC MAGALLANES I have received this information and my questions have been answered. Patient/Cook Dessert Name: Patient/Cook Dessert Signature: Relationship to Patient: Witness Name/Signature: Date: Electronically Signed on: 06/05/2022 17:59 ESTSigned by:[facility] Emergency department Note Milly Kirkpatrick: PERFORM Event Display: ED Notes Authored Date: Patient Care team information Care Team PersonnelName: Laura [place] NP Position: Physician Member Role: Primary Care Physician Address: Address: [address] Name: Berna Don MD Position: Physician - Women's Health Member Role: AGRICULTURAL SERVICE WORKER Physician Address: Address: [facility] [address] [place] [address] Name: Nikole Fofana Position: Nurse Member Role: ED Nurse Name: Miguel A Pickett MD Position: Physician Member Role: Admitting Physician Address: Address: [address] [place] [id number] Care Team Related PersonsName: KOLBY MAGALLANES Name: SUSI GROSSMAN
--- OUTSIDE RECORDS SUMMARY | 2022-06-07 10:33 | XMS_ITS | Encounter Summary ---
:1990 Author Organization [facility] [place] [address] Care Team Providers Name Role Phone Deepti Mathis APRN Primary Care Provider Encounter Details Date Type Department Care Team Description 09/09/2021 TH Visit Dermatology at [facility] Nemesio Marr, Eczema, unspecified (TeleHealth) Road type [address] [place] [address] [facility] [phone] [address] [id number] Social History Tobacco Use Types Packs/Day Years Used Date Current Every Day Smoker Smokeless Tobacco: Never Used Sex Assigned at Date Recorded Not on file documented as of this encounter Progress Notes Nemesio Marr MD - 09/09/2021 1:00 PM EST Images from the original note were not included. DEPARTMENT OF DERMATOLOGY Medical Dermatology Clinic Provider: Nemesio Marr MD FAAD at Dermatology [facility] Patient's preferred name Juana PAST MEDICAL HISTORY (if blank, patient denies history) Melanoma Dysplastic nevi SCC [facility] [place] [] cryotherapy [] efudex [] PDT [] Other Relevant Medications [] Immunosuppression [x] Transplant [] Oncogenic medication [] Nicotinamide 500mg po bid Other relevant history Hand dermatitis - triamcinolone, aug betamethasone FAMILY HISTORY (if blank, patient denies history) Melanoma NMSC Other relevant history Son with psoriasis (no other family members) Denies family history of IBD SOCIAL HISTORY Occupation: Administrative History of Present Illness: Juana Krishna is 31 y.o. and here for the following: ?? History of hand dermatitis treated with prednisone taper over 21 days which completely cleared the hands. Since stopping the prednisone, the dermatitis has come back twice as bad as it has been previous. Treating with augmented betamethasone on the weekdays and tacrolimus on the weekends. Noticing no significant improvement in the rash on the hands with the topicals. Would like to discuss patch testing if this would be beneficial. Antecedent History: Acute onset red scaly rashes on the digits of both hands and complicated by painful fissures and layered fingernail plates since July 2020 and worsening from October or November 2020.Pain is so severe, interferes with her ability to work. Intermittent but none concomitant itching ofthe feet. Denies itching or rashes elsewhere, such as the scalp, neck, elbows or knees. Previously treated with triamcinolone and augmented betamethasone and Dove unscented soap with no improvement or control; does not use hand claim administrator and removed artificial nails and stopped using nail yemeni or other nail lacquer for 6 to 8 months with no improvement. Never been treated with oral prednisone or phototherapy. No new medications or personal care products. She reports some foods make her symptoms worse-i.e., pasta and breads, specifically. History of asthma as a child but denies any history of atopic dermatitis, allergies or skin sensitivities or allergies, such as nickel or fragrance. 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 No specific hobbies. Family history of psoriasis. Never been biopsied. Medications: Reviewed in eD-H Allergies: Reviewed in eD-H Skin Examination Well developed, well-nourished in no apparent distress, alert and oriented to time, person, place and situation. Focused examination of the skin of the hands significant for the following: Exam Findings/Assessment/Plan Eczema Light red well demarcated eroded patches on the digits of both hands - dorsum worse than volar. ?? Flaring off prednisone and not controlled with topicals. Recommend systemic therapy. Patient lives >1.75 hours from NBUVB phototherapy. DDx: Hand Eczema - dyshidrosis vs ACD but unknown allergen though nail resin is compelling if she did not stop using nail products for >6 months with no improvement - over psoriasis. Discussed differential diagnoses as above, and management options including the risks and benefits of repeat prednisonse or cycolsporin for short term control course and equipment operator intermodal yard management with phototherapy. MTX, Cellcept and dupilumab. Discussed major risks of phototherapy including burn, blister and recurrence. Discussed major risks of oral prednisone, as below. Consider patch testing; discussed limitations and risks of patch testing. Answered all questions. Patient electsrestarting prednisone and starting dupilumanb ? Start Rx prednisone 20 mg: Take by mouth in the morning as follows: 3 tablets (60 mg) x 7 days; then 2 tablets (40 mg) x 7 days; then take 1 tablet (20 mg) x 7 days; then take 1/2 tablet (10mg) x 7 days ?? Return to clinic if changes in color, enlarges, or should bleeding or other symptoms occur. Patient agrees to plan. ?? Continue Rx Halobetasol ointment apply topically twice daily on the bilateral hands twice daily Thursday through Thursday. ?? Continue Rx tacrolimus (Protopic) 0.1% ointment: Apply topically to affected areas on the hands during the weekends twice daily as needed. Counseled possible burning or stinging with initial application. ?? Continue OTC CeraVe Anti-Itch and Dove unscented soap ?? Recommend NACDG series and Plastics/glues supplemental patch testing 4 weeks after last prednisone dose. Handout on patch testing previously given to the patient. ?? If approved, start dupilumab ?? Taking High Risk Medication [Prednisone] Laboratory Results Patient states negative test last week by PCP. ?? Counseled: prednisone, mechanisms, benefits and risks, including but not limited to weight gain, mood changes, insomnia, fatigue, thinning of skin, increase blood sugar levels, avascular necrosis, calcium loss from bones, and the risks of rapid withdrawal with equipment operator intermodal yard use, incoluding cardiovascular collapse or hypertension. Advise to take in the AM same time every day. Answered all questions. Patient verbally confirm understanding and gives consent. Handout from [employer] given to the patient. Taking High Risk Medication [Dupilumab] Dupilumab is a human antibody that antagonises IL-4 receptor alpha subunit, which blocks signalling from both IL-4 and IL-13 in the inflammatory pathway and is approved for the treatment of atopic dermatitis. Common side effects include nasopharyngitis, headaches, URTIs, conjunctivitis, injection sitereactions, herpes infections and atopic dermatitis exacerbations. Serious side effects include swelling of the face, eyelids, tongue, or throat difficulty swallowing or breathing tightness in the chest, eye problems, including eye pain, blurred vision, red or swollen eyelids, or changes in vision. ?? Handout mailed to patient. Follow-up: for dupilumab injection teaching then 2 months later. Return sooner as needed for suspicious lesion, new or worsening dermatitis. [] Recall placed [x] Forwarded to ticket scheduler [] Patient scheduled before exiting Scribe attestation: Lou Patel [facility]USDuane has performed the documentation for this encounter in the presence of and acting as a scribe for MD CARMEN Ward. I performed the above scribed service and agree with the accuracy of the documentation in this encounter. Reviewed and signed by: Nemesio Marr MD [facility] documented in this encounter Plan of Treatment Not on filedocumented as of this encounter Visit Diagnoses Diagnosis Eczema, unspecified type documented in this encounter Care Teams Materials Engineer Relationship Specialty Start Date End Date Deepti Mathis APRN PCP - General Family Medicine 02/23/[address] [place] [address] [place] [id number] documented as of this encounter
--- OUTSIDE RECORDS SUMMARY | 2022-06-07 10:33 | XMS_ITS | Encounter Summary ---
:1990 Author Organization [facility] [place] [address] Care Team Providers Name Role Phone Deepti Mathis APRN Primary Care Provider Reason for Visit Reason Comments Specialty Pharmacy Review Dupixent Encounter Details Date Type Department Care Team Description 09/09/2021 Specialty Pharmacy Pharmacy at [facility] Mauricio Lopez CPHT Review (D upixent) [place] [id number] Social History Tobacco Use Types Packs/Day Years Used Date Current Every Day Smoker Smokeless Tobacco: Never Used Sex Assigned at Date Recorded Not on file documented as of this encounter Progress Notes Mauricio Yuan CPHT - 09/09/2021 11:59 PM EST The [facility] has completed a benefits investigation for Juana Krishna to review their eligibility to fill at [facility]. Per patient's medication list they are prescribedDupixent 300mg/2ml Pen Injector and the medication is able to be filled at the [facility]. The appeal is still in process. documented in this encounter Plan of Treatment Not on filedocumented as of this encounter Visit Diagnoses Not on filedocumented in this encounter Care Teams Door Furring Installer Relationship Specialty Start Date End Date Deepti Mathis APRN PCP - General Family Medicine 02/23/[address] [place] [address] [place] [address] documented as of this encounter
--- OUTSIDE RECORDS SUMMARY | 2022-06-07 10:33 | XMS_ITS | Encounter Summary ---
:1990 Demographics Home Phone Preferred Language Unknown Marital Status Unknown Christianity Affiliation Unknown Race Unknown Ethnic Group Unknown Author Organization [facility] Address [address] [place] [address] Care Team Providers Name Role Phone Unavailable Primary Care Provider Unavailable Encounter Details Date Type Department Care Team Description 03/03/2022 Lab Requisition [facility] Outr Resulting Lab, Pathology & Laboratory Provider [facility] [address] [place] [address] Social History Tobacco Use Types Packs/Day Years Used Date Smoking Tobacco: Never Assessed Sex Assigned at Date Recorded Not on file documented as of this encounter Plan of Treatment Upcoming Encounters Date Type Specialty Care Team Description 08/11/2022 Office Visit Obstetrics & Gynecology Caroline Garces MD [address] [facility] [address] [place], [place] [address] (Wo rk) documented as of this encounter Procedures Procedure Name Priority Date/Time Associated Diagnosis Comme nts ESTRADIOL, ADULTS Routine 03/03/2022 17:00 Result s for this EDT procedure are i n the results section. documented in this encounter Results ESTRADIOL, ADULTS (03/03/2022 17:00 EDT) P athologist Signature Estradiol 626 See Note 03/05/2022 [facility] pg/mL 0:18 EDT [facility]ENTER [facility] Comment: NOTE: FEMALE REFERENCE RANGES: MENSTRUATING ? By cycle day relat alycia to LH peak Follicular ?(-12 to -4 days) ??20 -144 pg/mL Midcycle ?(-3 to +2 days) ?? 6 4-357 pg/mL Luteal ?(+4 t0 +12 days) ?? 56-214 pg/mL POSTMENOPAUSAL ?<32 pg/mL *Cross reactivity with Fulvestrant could lead to a falsely elevated estradiol result in patients treated with this drug. Specimen Anatomical Collection Method Collection Time Receive d Time (Source) Location / / Volume Laterality Blood VENOUS BLOOD / 03/03/2022 17:00 2 Unknown EDT 20:53 EDT Provider Outr Resulting Lab CHEMISTRY & BLOOD GAS JOSH STEVENS Performing Organization Address City/State/ZIP Code Phon e Number [facility] [address] [place] [address] SERVICES documented in this encounter Visit Diagnoses Not on filedocumented in this encounter
--- NOTE | 2022-06-07 10:44 | ED.GENADUL_ITS ---
Discharge Plan Disposition Patient Disposition: HOME Condition: Stable Discharge Details Chief Complaint: Headache Clinical Impression: Hypertension, Headache Primary Care Provider: LIYA RENDON ED Provider: Rod Rondon Discharge Instructions Instructions: Hypertension (ED) Additional Instructions: your cat scan and blood work did not show concerning findings at this time follow up with your primary care provider as scheduled on Thursday continue the amlodipine if you feel more ill, have severe worsening pain or chest pain return to the emergency department Medical Decision Making 32 yo female who denies chronic medical problems comes in with 2-3 days of her blood pressure being high. She states she doesn't normally check her bp but on thursday was having n/v and went to [facility], had abdomen/pelvis ct which was unremarkable other than an ovarian cyst and had u/s showing no other concerning findings per patient and was d/c'd. She reviewed her portal info and saw her bp was high so she started checking it at home and has been in the 190's so went back to [facility]. They started her on 2.5mg amlodipine and she took her first dose last night. She states she woke up this morning and had a headache in the anterior and posterior head so came here. She denies chest pain, abdomen pain, n/v this morning, fevers, chills, weaness, vision changes, speech changes. She arrives stable speaking clearly caox4. She has no focal deficits and nih is 0 on exam. Soft nontender abdomen, clear lung sounds, no murmurs and normal peripehral pulses. Is noted to be hypertensive to 190/125. Suspect she has underlying essential htn given she has evidence of lvh on ekg. Her headache is not the worst of her life and has slowly worsened so unlikely subarachnoid but given within 6 hours of pain onset will obtain ct to evaluate for this. No fevers or other infectious symptoms and no meninismus on exam to suggest outside machinist supervisor infection. Will treat her symptoms with compazine, toradol and check cbc, cmp and troponin and reassess. labs and imaging show no concerning findings, pt feels improved and bp now lower to 165/104. Discussed with pt, no changes in exam. She is stable for d/c and is comfortable with this plan, will continue the amlodipine and advised to f/u with her pcp, return precautions given Differential Diagnosis Differential Diagnosis: htn, migraine, tension headache Imaging Data Radiologic Study: Attestation: I personally reviewed and interpreted this imaging study as follows: Imaging: CT Scan Radiologist's impression: no acute findings Lab Data Lab results reviewed: Yes I reviewed the patient's lab results. ECG Data Attestation: I personally reviewed and interpreted this ECG (s) as follows: Prior ECG tracings: not available for review Interpretation: sinus, rate of 73, pr 148, lvh, no acute st t wave ischemic findings HPI General Mode of arrival: ambulatory . Date/Time Provider Initiated Documentation: 06/07/22 10:18 . Limitations to Documentation: no limitations . Information obtained by: patient . History of Present Illness 32 year old F presents to the emergency department with the chief complaint of high blood pressure, described as moderate, Patient started experiencing this day(s) (3) and it has been constant. No relieving factors improve symptom(s), No exacerbating factors reported . Patient notes headaches and nausea/vomiting. Patient did receive the following treatments prior to arrival, none General Stated Complaint: Headache BIANCA: 2 Review of Systems All systems reviewed & are unremarkable except as noted in HPI and below Constitutional Constitutional: Denies chills, Denies fever(s) and Denies weakness Cardiovascular Cardiovascular: Denies chest pain and Denies dyspnea Respiratory Respiratory: Denies cough and Denies dyspnea Gastrointestinal Gastrointestinal: Denies nausea Musculoskeletal Musculoskeletal: Denies joint swelling Integumentary/Breasts Skin/Breast: Denies rash Neurologic Neurologic: Denies weakness PFSH All Active Problems (Updated 06/07/22 @ 11:46 by Rod Rondon MD) Hypertension (Chronic) Headache (Acute) Social History Smoking/Tobacco Use Status: Former Tobacco Use Quit Date: 04/26/22 Smoking risk assessment performed?: Yes Alcohol Intake: current Alcohol Intake frequency: holidays/special occasions only Drug use: Never Substance use type: does not use Do you feel safe at home: Yes Do you feel safe in your relationship?: Yes Exam Const General: no acute distress Orientation: alert HENMT Head: normal to inspection Ears: external ears normal General nose exam: external nose normal Mouth: moist mucous membranes Eyes General: appearance normal, both eyes and all related structures Neck Neck: normal visual inspection Resp Effort & Inspection: normal respiratory effort and able to speak in complete sentences Cardio Rate: regular rate GI Palpation: soft and nontender Skin General skin exam: no rashes or lesions noted Neuro General: patient alert and patient oriented x3 Cranial Nerves: CN's II-XI intact bilaterally, PERRL, facial strength normal, tongue midline, able to rotate head bilaterally and able to elevate shoulders bilaterally Cognition: normal cognition Speech: speech normal Gait: normal gait Motor: muscle tone normal throughout, strength 5/5 throughout and no pronator drift Sensory Exam: no sensory deficits noted Extrem General: normal to inspection Psych Mental Status: mental status grossly normal Course Vital Signs Vital signs: Vital Signs Temperature 36.7 C 06/07/22 10:25 Pulse 98 H 06/07/22 10:25 Blood Pressure 190/125 H 06/07/22 10:25 Pulse Oximetry 98 06/07/22 10:25 Temperature 36.7 C 06/07/22 10:25 Temperature Source Skin 06/07/22 10:25 Pulse 98 H 06/07/22 10:25 Respiratory Effort 06/07/22 10:43 Blood Pressure 190/125 H 06/07/22 10:25 Pulse Oximetry 98 06/07/22 10:25 Oxygen Delivery Method Room Air 06/07/22 10:25 Oxygen Flow Rate 0 06/07/22 10:25 Pain Level 7 06/07/22 10:25 Comment 06/07/22 10:25 PAWSS Have you Been Recently Intoxicated or Drunk Within the Last 30 days?: No Have you Ever Experienced Previous Episodes of Alcohol Withdrawal?: No Have you ever Experienced Withdrawal Seizures?: No Have you ever Experienced Delirium Tremens(DT)s?: No Have you ever undergone Alcohol Rehabilitation Treatment (i.e, inpt ot outpatient treatment programs)?: No Have you ever Experienced Blackouts?: No Have you ever Combined Alcohol with other Downers within the last 90 days?: No Have you ever Combined Alcohol with any other Substance of Abuse during the last 90 days?: No Positive Blood Alcohol level on Presentation? [PCS.BAL]: No Evidence of Increased Autonomic Activity (i.e. HR>120, tremor, sweating, agitation, nausea)?: No Result: 0
[2022-06-07] MEDS: Normal Saline 1,000 ML 1000 ML IV (10:54)
[2022-06-07 10:56] LABS: Abs Immature Grans 0.05 10^3/uL (0.0-0.06); Absolute Basophil Count 0.05 10^3/uL (0.0-0.2); Absolute Eosinophil Count 0.18 10^3/uL (0.0-0.7); Absolute Lymphocyte Count 2.23 10^3/uL (1.2-3.4); Absolute Monocyte Count 0.74 10^3/uL (0.1-0.8); Absolute Neutrophil Count 7.55 10^3/uL (1.2-6.7); Basophils % 0.5; Eosinophils % 1.7; HCT 42.6 % (36.0-46.0); HGB 14.2 g/dL (11.2-15.7); Immature Grans % 0.5; Lymphocytes % 20.6; MCH 29.2 pg (27.0-33.0); MCHC 33.3 % (32.0-36.0); MCV 88 fL (80-95); MPV 10.1 fL (8.0-11.0); Monocytes % 6.9; Neutrophils % 69.8; Platelet Count 258 10^3/uL (130-400); RBC 4.86 10^6/uL (3.93-5.22); RDW 12.2 % (11.7-14.6); RDW-SD 39.4 fL
[2022-06-07] MEDS: Ketorolac 15 MG/ML VIAL IVP (10:56)
[2022-06-07] MEDS: Prochlorperazine 10 MG/2 ML VIAL IVP (10:58)
[2022-06-07 11:16] LABS: ALT 41 U/L (14-59); AST 19 U/L (15-37); Albumin 4.4 g/dL (3.4-5.0); Alkaline Phosphatase 72 U/L (46-116); Anion Gap 9.5 mmol/L (3-11); BUN 13 mg/dL (7-18); Bilirubin, Total 0.4 mg/dL (0.2-1.0); CO2 27.5 mmol/L (21.0-32.0); CREATININE 0.8 mg/dL (0.55-1.02); Calcium 9.3 mg/dL (8.5-10.1); Chloride 102 mmol/L (98-107); Estimated GFR 99.71 (mL/min/1.73m2); Glucose 109 mg/dL (74-106); Sodium 139 mmol/L (136-145); Total Protein 8.3 g/dL (6.4-8.2); Troponin I < 50 ng/L (<or=60)
--- NOTE | 2022-06-07 11:31 | DI.VRAD_ITS ---
PROCEDURE INFORMATION: Exam: CT Head Without Contrast Exam date and time: 06/07/2022 11:15 AM Age: 32 years old Clinical indication: Pain; Headache TECHNIQUE: Imaging protocol: Computed tomography of the head without contrast. COMPARISON: No relevant prior studies available. FINDINGS: Brain: There is no acute intracranial hemorrhage. No extra-axial fluid collection. No evidence of acute infarct. Mcgee white differentiation is intact. There is no evidence of mass. There is no mass effect or midline shift. Cerebral ventricles: No ventriculomegaly. Paranasal sinuses: There is very minimal mucosal thickening in superomedial aspect of maxillary sinuses and very small left maxillary sinus retention cyst or polyp. Otherwise paranasal sinuses are clear. No air-fluid levels or acute sinusitis. Mastoid air cells: There is minimal fluid in inferior aspect of left mastoid air cells otherwise bilateral mastoid air cells are clear. Bones/joints: No acute fracture. Soft tissues: Unremarkable as visualized. IMPRESSION: No evidence of acute intracranial abnormality. No acute hemorrhage. No evidence of acute infarct or mass. Dictated and Authenticated by: Pricila Zapata MD. Ordering:OLIMPIA Velasco MD
--- NOTE | 2022-06-09 10:08 | NUR.NOTE ---
Nursing Note: Accessed chart to determine orders for EKG and to determine whether or not one needs to be cancelled.
== END 2022-06-07 11:54 | disposition home or self-care (01) ==
PROVIDERS: Emergency Provider Emergency Medicine; PCP Registered Nurse
DX: I10 Essential (primary) hypertension (principal); R51.9 Headache, unspecified
CPT/HCPCS: 36415; 80053; 93005; 96361; 96374; 96375; 99284; 70450; 84484; 85025; 93010; 99285; J0780; J1885